=== PATIENT | male | born 1990 | race Caucasian/White ===

== ENCOUNTER 2019-08-24 05:00 | Emergency (ER) | payer MEDICAID, SELFPAY ==
[2019-08-24] VITALS (9 sets, daily range): BP systolic 106–130; BP diastolic 57–80; PULSE 85–113; RESP 16–24; TEMP 36.9; O2SAT 91–96; BMI 33.4
--- NOTE | 2019-08-24 04:55 | ED_ITS ---
Entered by Mary Clarke, acting as scribe for Documented by User: Sayra Galloway MD 08/24/19 05:41 HPI - Headache General: Chief Complaint: Seizure Stated Complaint: generalized weakness, siezure, headache Time Seen by Provider: 08/24/19 04:55 Source: EMS Mode of arrival: ambulatory History of Present Illness: HPI Narrative: 29 yo m came to the er by ems for headache, gen weakness and seizure. Onset was last night. Pt states that he gets a headache he knows that he is going to have a seizure. Pt states that once he receives pain meds that his seizures will stop. Pt is denying of any dizzyness at this time. MD elicited complaint: headache Pertinent past history: HIV and migraines Onset (ago): day(s) (last night) Onset description: gradually Severity: moderate Pain scale (0-10): 10 Quality & Timing: similar to previous headaches Exacerbating factors: none Relieving factors: nothing Context: occurred at rest Associated symptoms: Deny chest pain, fever(s), nausea, rash or vomiting Treatments prior to arrival: none Review of Systems General: Reports: other (negative unless marked) Const: Denies: fever or chills Eyes: Denies: change in vision ENMT: Denies: throat pain or mouth pain Card: Denies: chest pain Resp: Denies: shortness of breath GI: Denies: abdominal pain, nausea, vomiting or diarrhea Musc: Denies: back pain or joint pain Skin/Breast: Denies: rash Neuro: Reports: headache; Denies: behavioral changes Psych: Denies: depression Endo: Denies: excessive urination Rogelio/Lymph: Denies: easy bruising All/Imm: Denies: hives Physical Exam Const: COMMON NORMALS: no apparent distress and healthy appearing HENMT: COMMON NORMALS: normocephalic and external nose normal HEAD & SCALP: normocephalic NOSE: external nose normal and no nasal discharge (nasal dischage) Eye: COMMON NORMALS: PERRL PUPIL: Yes PERRL Neck/C-Spine: COMMON NORMALS: full ROM, no lymphadenopathy and no meningeal signs Chest: COMMONS NORMALS: inspection of chest normal Resp: COMMON NORMALS: normal respiratory effort and clear to auscultation bilaterally AUSCULTATION: clear to auscultation bilaterally Cardio: COMMON NORMALS: regular rate and regular rhythm RATE: regular rate RHYTHM: regular rhythm GI: COMMON NORMALS: soft to palpation PALPATION: Yes soft Extremity: COMMON NORMALS: normal to inspection, full ROM and normal capillary refill Neuro: MENINGEAL SIGNS: Yes no meningeal signs Psych: COMMON NORMALS: mental status grossly normal and cooperative Skin: COMMON NORMALS: no rashes or lesions noted GENERAL SKIN EXAM: no rashes or lesions noted Course Vital Signs: Vital signs: Vital Signs Temperature 98.4 F 08/24/19 04:53 Pulse Rate 106 H 08/24/19 09:28 Respiratory Rate 18 08/24/19 09:28 Blood Pressure 130/77 08/24/19 09:28 Pulse Oximetry 91 08/24/19 09:28 MDM - Headache MDM Narrative: Medical decision making narrative: Patient while here has had supposed seizure-like activity. During his seizures extremities move he does not quit breathing. I told him to stop and he did stop and had no postictal period. We will get a CT scan along with CBC and BMP. Patient does have chronic headaches and has no signs of meningitis here. Patient's care turned over to Dr. Cleaning at shift change. Lab Data: Labs: Lab Results 08/24/19 08/24/19 08/24/19 Range/Units 05:26 05:36 06:33 WBC 14.3 H (4.0-10.0) 10^3/ uL RBC 5.16 (4.1-5.3) 10^6/u L Hgb 16.0 (11.7-16.6) g/dL Hct 46.7 (42.0-52.0) % MCV 90.5 (80-94) fL MCH 31.0 (28.0-34.0) pg MCHC 34.3 (30.0-36.0) g/dL RDW 11.8 L (12.1-15.1) % Plt Count 209 (130-400) 10^3/c mm MPV 11.8 H (7.4-10.4) fL Neut % (Auto) 69.1 % Lymph % (Auto) 21.1 % Caroline % (Auto) 8.3 % Eos % (Auto) 0.7 % Baso % (Auto) 0.5 % Neut # (Auto) 9.9 H (1.8-7.7) 10^3/u L Lymph # (Auto) 3.0 (0.8-4.8) 10^3/u L Caroline # (Auto) 1.2 H (0.2-0.9) 10^3/u L Eos # (Auto) 0.1 (0.0-0.8) 10^3/u L Baso # (Auto) 0.1 (0.0-0.1) 10^3/u L Nucleated RBC % (a uto) 0 % Nucleated RBCs # 0.0 /100WBC Sodium 136 (136-145) mmol/L Potassium 3.9 (3.5-5.1) mmol/L Chloride 101 (98-107) mmol/L Carbon Dioxide 24 (22-29) mmol/L Anion Gap 14.9 (5-19) BUN 25 H (6-20) mg/dL Creatinine 1.2 (0.7-1.2) mg/dL GFR Calculation 70.6 L (90-130) mL/min Glucose 98 (74-109) mg/dL Calcium 9.7 (8.6-10.0) mg/Dl Urine Opiates Scre en Positve (Negative) ng/mL Ur Barbiturates Sc reen Negative (Negative) ng/mL Ur Phencyclidine S crn Negative (Negative) ng/mL Ur Amphetamines Sc reen Negative (Negative) ng/mL U Benzodiazepines Scrn Positive H (Negative) ng/mL Urine Cocaine Scre en Negative (Negative) ng/mL U Marijuana (THC) Screen Negative (Negative) ng/mL EKG Data^: EKG 1: Attestation: I personally reviewed and interpreted this EKG as follows: EKG interpretation date: 08/24/19 EKG interpretation time: 05:15 Interpretation: sinus tach hr [address] or t wave abnormalities Discharge Plan Discharge Patient Disposition: Left Against Medical Advice Clinical Impression: Generalized seizure Condition: Stable Prescriptions: No Action zolpidem [Ambien] 10 mg Tablet 10 mg PO BEDTIME PRN (Reason: Sleep) RF: 0 diazepam [Valium] 5 mg Tablet 5 mg PO QID PRN (Reason: Anxiety) RF: 0 cyclobenzaprine 10 mg Tablet 10 mg PO TID PRN (Reason: Spasms) RF: 0 tizanidine 4 mg Tablet 4 mg PO Q6H PRN (Reason: Spasms) RF: 0 gabapentin 300 mg Capsule 600 mg PO TID RF: 0 Seroquel 50 mg Tablet 50 mg PO TID RF: 0 Referrals: Cheryl Younger, EDILBERTO [Emergency Nurse] - (Follow-up with your provider as soon as possible for recheck and further evaluation and care.) Discharge Diet: Usual diet Discharge Activity: Resume usual activity Patient Instructions: Epilepsy (ED) Activity Restrictions/Additional Instructions: No driving, no tub baths, no swimming alone, no working at heights, no operating machinery, or anything else that would put you or anyone else at risk should you have another seizure. Discharge Date/Time: 08/24/19 09:00 Coding Level of Care Code ED Cigar Roller for Chg Fwd Exam Problem Focused Documented by User: Sheela Bueno 08/24/19 15:07 HPI - Headache General: Chief Complaint: Seizure Stated Complaint: generalized weakness, siezure, headache Time Seen by Provider: 08/24/19 04:55 Course Vital Signs: Vital signs: Vital Signs Temperature 98.4 F 08/24/19 04:53 Pulse Rate 106 H 08/24/19 09:28 Respiratory Rate 18 08/24/19 09:28 Blood Pressure 130/77 08/24/19 09:28 Pulse Oximetry 91 08/24/19 09:28 MDM - Headache MDM Narrative: Medical decision making narrative: The patient has had episodes here where he states he is seizing but he stops when I talk to him and he has purposeful movement and talks throughout the seizure. I have treated him with benzodiazepines and Reglan and he is feeling better. He declines any further evaluation and care would like to be discharged home. I do not believe what he is been demonstrating or seizures but I have proceeded with caution and his evaluation here is normal. He denies any other symptoms and would like to be discharged at this time. Lab Data: Labs: Lab Results 08/24/19 08/24/19 08/24/19 Range/Units 05:26 05:36 06:33 WBC 14.3 H (4.0-10.0) 10^3/ uL RBC 5.16 (4.1-5.3) 10^6/u L Hgb 16.0 (11.7-16.6) g/dL Hct 46.7 (42.0-52.0) % MCV 90.5 (80-94) fL MCH 31.0 (28.0-34.0) pg MCHC 34.3 (30.0-36.0) g/dL RDW 11.8 L (12.1-15.1) % Plt Count 209 (130-400) 10^3/c mm MPV 11.8 H (7.4-10.4) fL Neut % (Auto) 69.1 % Lymph % (Auto) 21.1 % Caroline % (Auto) 8.3 % Eos % (Auto) 0.7 % Baso % (Auto) 0.5 % Neut # (Auto) 9.9 H (1.8-7.7) 10^3/u L Lymph # (Auto) 3.0 (0.8-4.8) 10^3/u L Caroline # (Auto) 1.2 H (0.2-0.9) 10^3/u L Eos # (Auto) 0.1 (0.0-0.8) 10^3/u L Baso # (Auto) 0.1 (0.0-0.1) 10^3/u L Nucleated RBC % (a uto) 0 % Nucleated RBCs # 0.0 /100WBC Sodium 136 (136-145) mmol/L Potassium 3.9 (3.5-5.1) mmol/L Chloride 101 (98-107) mmol/L Carbon Dioxide 24 (22-29) mmol/L Anion Gap 14.9 (5-19) BUN 25 H (6-20) mg/dL Creatinine 1.2 (0.7-1.2) mg/dL GFR Calculation 70.6 L (90-130) mL/min Glucose 98 (74-109) mg/dL Calcium 9.7 (8.6-10.0) mg/Dl Urine Opiates Scre en Positve (Negative) ng/mL Ur Barbiturates Sc reen Negative (Negative) ng/mL Ur Phencyclidine S crn Negative (Negative) ng/mL Ur Amphetamines Sc reen Negative (Negative) ng/mL U Benzodiazepines Scrn Positive H (Negative) ng/mL Urine Cocaine Scre en Negative (Negative) ng/mL U Marijuana (THC) Screen Negative (Negative) ng/mL Discharge Plan Discharge Patient Disposition: Left Against Medical Advice Clinical Impression: Generalized seizure Condition: Stable Prescriptions: No Action zolpidem [Ambien] 10 mg Tablet 10 mg PO BEDTIME PRN (Reason: Sleep) RF: 0 diazepam [Valium] 5 mg Tablet 5 mg PO QID PRN (Reason: Anxiety) RF: 0 cyclobenzaprine 10 mg Tablet 10 mg PO TID PRN (Reason: Spasms) RF: 0 tizanidine 4 mg Tablet 4 mg PO Q6H PRN (Reason: Spasms) RF: 0 gabapentin 300 mg Capsule 600 mg PO TID RF: 0 Seroquel 50 mg Tablet 50 mg PO TID RF: 0 Referrals: Cheryl Younger RN [Emergency Nurse] - (Follow-up with your provider as soon as possible for recheck and further evaluation and care.) Discharge Diet: Usual diet Discharge Activity: Resume usual activity Patient Instructions: Epilepsy (ED) Activity Restrictions/Additional Instructions: No driving, no tub baths, no swimming alone, no working at heights, no operating machinery, or anything else that would put you or anyone else at risk should you have another seizure. Discharge Date/Time: 08/24/19 09:00 Coding Level of Care Code ED Cigar Roller for Chg Fwd Exam Problem Focused The documentation recorded by the Vince lundberg Stephanie Lyn, accurately reflects the service I personally performed and the decisions made by me, Sayra Galloway MD
--- NOTE | 2019-08-24 05:20 | CTR_ITS ---
[facility] Final Radiology Report Call: [phone] assistance Online chat: [email or web address] Name: LEYLA GUERIN Age: 29Years M Date: 08/24/2019 SSN: -- : [id number] Study: CT HEAD WO Requesting Physician: naseem Galloway Images: 210 Add?l Studies: Provided Clinical History: headache Procedure Accession CTDI Vol (mGy) DLP (mGy-cm) CT HEAD WO [id number] 847.58 PROCEDURE INFORMATION: Exam: CT Head Without Contrast Exam date and time: 08/24/2019 5:46 AM Age: 29 years old Clinical indication: Other: Seizure; Additional info: Headache TECHNIQUE: Imaging protocol: Computed tomography of the head without contrast. Total DLP: 847.58 mGy-cm Radiation optimization: All CT scans at this facility use at least one of these dose optimization techniques: automated exposure control; mA and/or kV adjustment per patient size (includes targeted exams where dose is matched to clinical indication); or iterative reconstruction. COMPARISON: No relevant prior studies available. FINDINGS: Brain: Normal. No hemorrhage. Unremarkable white matter. No mass effect. Ventricles: Normal. No ventriculomegaly. Bones/joints: Unremarkable. No acute fracture. Sinuses: There is mild sinus disease. Mastoid air cells: Visualized mastoid air cells are well aerated. Soft tissues: Unremarkable. IMPRESSION: No acute intracranial findings identified. Please refer to incidental findings in body of report. Thank you for allowing us to participate in the care of your patient. Dictated and Authenticated by: Gianluca Villegas MD 08/24/2019 8:23 AM Central Time ([place] & [place]) [facility]
[2019-08-24] MEDS: diphenhydrAMINE 50 mg/mL SDV 1mL IVP (05:24)
[2019-08-24] MEDS: metoclopramide 5 mg/mL SDV 2 mL 10 MG IV ×2 (05:24→08:36)
--- NOTE | 2019-08-24 05:27 | PC.NURSE ---
non destructive testing technician called nurse and ED physician into room for seizure activity . this activity lasted for approximately 2 minutes. pt apears to not be postictal. as soon as patients seizure activity patient stated my head hurts and i need something for pain. NURSE, NURSE look at this picture of my teacup pig. ed physician at bedside for activity. seizure precautions started on patient. suction at bedside. pulse ox and cafeteria monitor placed on patient. seizure pads placed on side rails. side rails up X2. patient informed to not to get up out of bed without assistance by ED staff.
[2019-08-24 05:33] LABS: Basophils # 0.1 10^3/uL (0.0-0.1); Basophils % 0.5 %; Eosinophils # 0.1 10^3/uL (0.0-0.8); Eosinophils % 0.7 %; Hematocrit 46.7 % (42.0-52.0); Lymphocytes % 21.1 %; Mean Corpuscular HGB Conc 34.3 g/dL (30.0-36.0); Mean Corpuscular Volume 90.5 fL (80-94); Mean Platelet Volume 11.8 fL (7.4-10.4); Monocytes # 1.2 10^3/uL (0.2-0.9); Monocytes % 8.3 %; Neutrophils # 9.9 10^3/uL (1.8-7.7); Neutrophils % 69.1 %; Nucleated Red Blood Cells % 0 %; Platelet Count 209 10^3/cmm (130-400); Red Blood Count 5.16 10^6/uL (4.1-5.3); Red Cell Distribution Width 11.8 % (12.1-15.1); White Blood Count 14.3 10^3/uL (4.0-10.0)
[2019-08-24] MEDS: morphine 4 mg/mL SDV 1 mL IVP (05:45)
--- NOTE | 2019-08-24 06:17 | PC.NURSE ---
in CT patient had more seizure activity this lasted for approximately 1 minute . patient had hands above head and grasping tightly. patient woke up asking where is my ? am I being admitted? am I going to ? ed physician notified of this incident.
[2019-08-24] MEDS: sodium chloride 0.9% 1,000 ML 999 ML IV (06:32)
[2019-08-24 06:43] LABS: Amphetamines Screen Urine Negative (Negative); Barbiturates Screen Urine Negative (Negative); Benzodiazepines Screen Urine Positive (Negative); Cocaine Screen Urine Negative (Negative); PCP Screen Urine Negative (Negative); THC Screen Urine Negative (Negative)
[2019-08-24 06:51] LABS: Anion Gap 14.9 (5-19); Blood Urea Nitrogen 25 mg/dL (6-20); Calcium 9.7 mg/Dl (8.6-10.0); Carbon Dioxide 24 mmol/L (22-29); Chloride 101 mmol/L (98-107); Glomerular Filtration Rate 70.6 mL/min (90-130); Glucose 98 mg/dL (74-109); Potassium 3.9 mmol/L (3.5-5.1); Sodium 136 mmol/L (136-145)
[2019-08-24] MEDS: HYDROmorphone 1 mg/mL INJ 1 mL 0.5 MG IVP (06:53)
--- NOTE | 2019-08-24 07:00 | PC.NURSE ---
Report received from EDILBERTO Luna. Care transferred to EDILBERTO Barnhart.
--- NOTE | 2019-08-24 07:05 | PC.NURSE ---
Patient continues to have pseudo-seizures, once coming out of the seizure he insists that he wants to be admitted and that he feels like he's going to and his grandmother will call him home As well wanting to know what the results. Notified both the nurse and doctor.
[2019-08-24] MEDS: LORazepam 2 mg/mL INJ 1 mL IVP (08:09)
[2019-08-24] MEDS: LORazepam 2 mg/mL INJ 1 mL 1 MG IVP (08:20)
== END 2019-08-24 09:00 | disposition left against medical advice (07) ==
PROVIDERS: Emergency Medicine; Emergency Provider Emergency Medicine
DX: G40.89 Other seizures (principal); B20 Human immunodeficiency virus [HIV] disease; Z53.21 Procedure and treatment not carried out due to patient leaving prior to being seen by health care provider
CPT/HCPCS: 36415; 70450; 80048; 80307; 85025; 96360; 96365; 96374; 99283; J0131; J1170; J1200; J2060; J2270; J2765; J7030

== ENCOUNTER 2019-08-28 02:41 | Emergency (ER) | payer MEDICAID, SELFPAY ==
[2019-08-28 02:45] VITALS: BP 139/96; PULSE 107; RESP 16; TEMP 36.7; O2SAT 97; BMI 34.4
--- NOTE | 2019-08-28 02:45 | ED_ITS ---
Entered by Mary Clarke, acting as scribe for Sayra Galloway MD HPI - Psych General: Chief Complaint: Psychiatric Symptoms Stated Complaint: MHE Time Seen by Provider: 08/28/19 02:52 Source: patient Mode of arrival: ambulatory Limitations: no limitations History of Present Illness: HPI Narrative: 29 yo m came to the er with family for psychiatric symptoms. Onset was today. Pt states that he has a headache, pt also states that Nila from [facility] told pt that he needs a MHE. MD complaint: suicidal ideation Onset (ago): hour(s) Duration: constant History of same: Yes Relieving factors: none Exacerbating factors: none Associated psychiatric symptoms: depression Associated symptoms: Deny depression Treatments prior to arrival: none Review of Systems Const: Denies: fever or chills Eyes: Denies: change in vision ENMT: Denies: throat pain or mouth pain Card: Denies: chest pain Resp: Denies: shortness of breath GI: Denies: abdominal pain, nausea, vomiting or diarrhea Musc: Denies: back pain or joint pain Skin/Breast: Denies: rash Neuro: Denies: headache or behavioral changes Psych: Denies: depression Endo: Denies: excessive urination Rogelio/Lymph: Denies: easy bruising All/Imm: Denies: hives PFSH ED PFSH: Statuses (acute, chronic, etc) shown below reflect problem list status as previously entered and may not be historically accurate Social History Smoking and tobacco status: current every day smoker Physical Exam Const: COMMON NORMALS: no apparent distress, oriented x3 and healthy appearing HENMT: COMMON NORMALS: normocephalic and external nose normal HEAD & SCALP: normocephalic NOSE: external nose normal Eye: COMMON NORMALS: PERRL PUPIL: Yes PERRL Neck/C-Spine: COMMON NORMALS: full ROM and no lymphadenopathy Chest: COMMONS NORMALS: inspection of chest normal Resp: COMMON NORMALS: normal respiratory effort, no use of accessory muscles and clear to auscultation bilaterally AUSCULTATION: clear to auscultation bilaterally Cardio: COMMON NORMALS: regular rate and regular rhythm RATE: regular rate RHYTHM: regular rhythm GI: COMMON NORMALS: normal to inspection, nondistended, normoactive bowel sounds, soft to palpation, non-tender and no masses PALPATION: Yes soft Back/Pelvis: THORACIC SPINE/UPPER BACK: Yes normal to inspection Extremity: COMMON NORMALS: normal to inspection, full ROM and normal capillary refill Neuro: COMMON NORMALS: oriented x3 Psych: COMMON NORMALS: mental status grossly normal and cooperative Skin: COMMON NORMALS: no rashes or lesions noted GENERAL SKIN EXAM: no rashes or lesions noted MDM - Psych MDM Narrative: Medical decision making narrative: Patient presents here with headache with a tension headache. Patient's also depressed but has no suicidal or homicidal ideations. Patient adamantly denies any suicidality or homicidality. Patient is well-appearing here and is stable for discharge. Discharge Plan Discharge Patient Disposition: Home, Self-Care Clinical Impression: Headache Qualifiers: Headache type: tension-type Headache chronicity pattern: unspecified pattern Intractability: not intractable Qualified Code(s): G44.209 - Tension-type headache, unspecified, not intractable Condition: Stable Discharge Orders: Discharge Order (Routine); Ordered 08/28/19 Ordered By: Sayra Galloway Discharge Diet: Advance as tolerated Discharge Activity: Resume usual activity Patient Instructions: Acute Headache (ED) Discharge Date/Time: 08/28/19 03:09 Coding Level of Care Code ED Lens Matcher for Chg Fwd Exam Problem Focused The documentation recorded by the Vince lundberg Stephanie Lyn, accurately reflects the service I personally performed and the decisions made by , Sayra Galloway MD
[2019-08-28] MEDS: promethazine 25 mg/mL SDV 1 mL IM (03:09)
== END 2019-08-28 03:09 | disposition home or self-care (01) ==
LOC: ER 02:58
PROVIDERS: Emergency Provider Emergency Medicine
DX: G44.209 Tension-type headache, unspecified, not intractable (principal); F17.210 Nicotine dependence, cigarettes, uncomplicated
CPT/HCPCS: 99284; J2550

== ENCOUNTER 2019-08-29 11:55 | Emergency (ER) | payer MEDICAID, SELFPAY ==
[2019-08-29] VITALS (9 sets, daily range): BP systolic 102–175; BP diastolic 76–104; PULSE 86–139; RESP 14–32; TEMP 36.9–37; O2SAT 98–99; BMI 28.7
[2019-08-29] MEDS: LORazepam 2 mg/mL INJ 1 mL (12:10)
[2019-08-29] MEDS: succinylcholine 20 mg/mL SDV 10mL 200 MG (12:13)
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
[2019-08-29] MEDS: sodium chloride 0.9% 1,000 ML 999 ML IV (12:20)
[2019-08-29] MEDS: propofol 1,000 MG/100 ML INJ 10 MG (12:20)
[2019-08-29] MEDS: sodium chloride 0.9% 1,000 ML 200 ML IV ×2 (12:36→17:52)
--- NOTE | 2019-08-29 13:01 | XR_ITS ---
WS: [id number] PORTABLE CHEST HISTORY: post intubation and NG tube placement COMPARISON: 02/04/2019 Endotracheal tube terminates over C6 and needs to be advanced 5 to 6 cm. Nasogastric tube terminates just within the stomach. The proximal port is in the distal esophagus. Na sogastric tube also needs to be advanced. RIGHT upper lobar collapse. Shift of the midline structures to the RIGHT, due to volume loss. Increas ing opacification also over the central LEFT lung. Volume loss bilaterally. Stranding in the LEFT low er lobe posterior to the heart. Cardiac size: Normal. Mediastinum/Aorta: Prominence of the mediastinum due to atelectasis centrally. No osseous abnormality seen. Notified Kathryn Horn MD [facility] [place] at 08/29/2019 2:17 PM. XR/XR chest 1V portable [id number] IMPRESSION: 1. Endotracheal tube terminates at C6 and needs to be advanced at least 6 cm f or more optimal positioning. 2. Nasogastric tube terminates in the proximal stomach and needs to be advance d 10 cm for more optimal positioning. 3. RIGHT upper lobe collapse with volume loss and additional changes in the LE FT upper lobe suspicious for atelectasis. Aspiration pneumonia and mucous plugg ing should also be considered as possible etiologies for the changes. Advancing the endotracheal tube to the correct position may help.
--- NOTE | 2019-08-29 13:01 | CT_ITS ---
WS: [id number] CT HEAD NONCONTRAST HISTORY: status epilecticus TECHNIQUE: Contiguous axial imaging performed through the brain in 2.5 mm imaging. Bone and soft tiss ue windows. Sagittal and coronal reformats reviewed. All CT scans at [facility] use at ast one of these dose optimization techniques: automated exposure control; mA and/or kV adjustment pe r patient size (includes targeted exams where dose is matched to clinical indication); or iterative r econstruction. DLP: 558.74 mGy.cm COMPARISON: 08/24/2019 No acute intracranial hemorrhage, midline shift or mass effect. No atrophy or prior infarcts or herniation. Ventricles: Normal size with no hydrocephalus. No inferior displacement of cerebellar tonsils. Paranasal sinuses: Mild mucoperiosteal thickening in the ethmoid air cells. No air-fluid levels. Mastoid air cells: Well pneumatized. Calvarium and scalp: Skull is intact with no soft tissue edema or swelling. CT/CT head wo con* [id number] IMPRESSION: No acute intracranial hemorrhage or edema. Stable since 08/24/2019.
[2019-08-29 13:33] LABS: Basophils # 0.1 10^3/uL (0.0-0.1); Basophils % 0.7 %; Eosinophils # 0.2 10^3/uL (0.0-0.8); Eosinophils % 1.8 %; Hematocrit 43.2 % (42.0-52.0); Hemoglobin 14.4 g/dL (11.7-16.6); Lymphocytes # 1.9 10^3/uL (0.8-4.8); Lymphocytes % 23.6 %; Mean Corpuscular HGB Conc 33.3 g/dL (30.0-36.0); Mean Corpuscular Hemoglobin 30.6 pg (28.0-34.0); Mean Corpuscular Volume 91.7 fL (80-94); Monocytes # 0.7 10^3/uL (0.2-0.9); Monocytes % 8.5 %; Neutrophils # 5.3 10^3/uL (1.8-7.7); Neutrophils % 64.8 %; Nucleated Red Blood Cells % 0 %; Platelet Count 215 10^3/cmm (130-400); Red Blood Count 4.71 10^6/uL (4.1-5.3); Red Cell Distribution Width 12.1 % (12.1-15.1); White Blood Count 8.2 10^3/uL (4.0-10.0)
[2019-08-29 13:48] LABS: Alanine Aminotransferase 46 U/L (0-41); Albumin Level 4.2 g/dL (3.5-5.2); Alkaline Phosphatase 127 IU/L (40-130); Anion Gap 15.6 (5-19); Aspartate Amino Transferase 39 U/L (0-40); Blood Urea Nitrogen 15 mg/dL (6-20); Calcium 9.6 mg/Dl (8.6-10.0); Carbon Dioxide 23 mmol/L (22-29); Chloride 105 mmol/L (98-107); Globulin 2.5 g/dL (1.3-4.6); Glomerular Filtration Rate 78.1 mL/min (90-130); Glucose 121 mg/dL (74-109); Potassium 4.6 mmol/L (3.5-5.1); Sodium 139 mmol/L (136-145); Total Bilirubin 0.4 mg/dL (0.15-1.2); Total Protein 6.7 g/dL (6.6-8.7)
[2019-08-29] MEDS: propofol 1,000 MG/100 ML INJ 60 MG IV ×3 (14:41→20:05)
[2019-08-29] MEDS: vecuronium 10 mg SDV IV ×2 (14:46→16:28)
[2019-08-29] MEDS: fentaNYL 50 mcg/mL INJ 2mL 200 MCG IVP (14:48)
[2019-08-29] MEDS: sodium chloride 0.9% 1,000 ML 100 ML IV (15:55)
[2019-08-29] MEDS: fentaNYL 50 mcg/mL INJ 2mL 100 MCG IVP (16:04)
--- NOTE | 2019-08-29 17:57 | PC.NURSE ---
10mg Vec given IV over 3 minutes, per Dr. Horn's verbal order @ 6600
[2019-08-29 18:12] LABS: Add Urine Microscopic? NO
[2019-08-29 18:32] LABS: Bilirubin Urine Neg (NEGATIVE); Blood Urine Neg (Negative); Glucose Urine UA Norm (Normal); Ketones Urine Negative (Negative); Leukocyte Esterase Urine Negative (Negative); Nitrate Urine Negative (Negative); Protein Urine Neg (Negative); Specific Gravity, Urine 1.005 (1.005-1.030); Urine Appearance Clear (CLEAR); Urine Color Straw (Yellow); Urobilinogen Urine Norm (Negative); pH Urine 5 (5-7)
[2019-08-29 18:44] LABS: Amphetamines Screen Urine Negative (Negative); Barbiturates Screen Urine Negative (Negative); Benzodiazepines Screen Urine Positive (Negative); Cocaine Screen Urine Negative (Negative); Opiate Screen Urine Negative (Negative); PCP Screen Urine Negative (Negative); THC Screen Urine Negative (Negative)
--- NOTE | 2019-08-29 19:30 | PC.NURSE ---
This nurse to sit 1:1 with pt due to high risk of extubation. Current VS 107/76, hr 85, O2 98%. Levophed @ 4 mcg/min, propofol @ 50 mcg/kg/min. Ventilator setting at 35%, 500 TV 8 PEEP, R14. ETT size 8, 27 @ lip.
[2019-08-29] MEDS: LORazepam 2 mg/mL INJ 1 mL IVP (20:07)
== END 2019-08-29 20:45 | disposition short-term general hospital (02) ==
PROVIDERS: Emergency Provider Family Medicine
DX: G40.901 Epilepsy, unspecified, not intractable, with status epilepticus (principal); F17.210 Nicotine dependence, cigarettes, uncomplicated
CPT/HCPCS: 31500; 70450; 71045; 80053; 80307; 81003; 85025; 86140; 87070; 87205; 94002; 94799; 96360; 96361; 96365; 96366; 96367; 96368; 96374; 96375; 96376; 99283; 99291; A4570; J0330; J1953; J2060; J2704; J3010; J3490; J7030

== ENCOUNTER 2019-09-04 14:13 | Emergency (ER) | payer MEDICAID, SELFPAY ==
--- NOTE | 2019-09-04 14:18 | ED_ITS ---
Entered by Krystal Eisenberg, acting as scribe for Sheela Bueno HPI - Seizure General: Chief Complaint: Seizure Stated Complaint: PSEUDO SEIZURE Time Seen by Provider: 09/04/19 14:17 Source: patient Limitations: no limitations History of Present Illness: HPI Narrative: 29 yo Male presents to ED with complaint of seizure. Pt states that he takes valium for seizures but thinks he needs to be taking something else. Pt states that his PCP is Boom Griffin. Pt states that he has a bad headache and a rapid heart rate. Pt states that he did not injury anything during his seizures. Per nursing staff, EMS picked patient up at 0200 today and took the patient to the hospital in [place]. Pt was discharged from [place] at 1100 and went to Probation office where he had a seizure and was brought into this ED. MD complaint: seizure Description of Episode: tonic-clonic movement and post-event confusion Trauma: No Seizure History: Yes Place: Home Possible Precipitating Event: none Associated symptoms: Reports confusion; Deny chest pain, chills, diaphoresis, fever(s), malaise or syncope Review of Systems General: Reports: other (negative unless marked) Const: Denies: fever, chills, body aches, fatigue, malaise or diaphoresis Eyes: Denies: change in vision or blurry vision ENMT: Denies: throat pain, painful swallowing, hoarseness, ear pain, ear discharge, Change in hearing or nasal discharge Card: Denies: chest pain, palpitations, irregular heart rhythm, syncope, pre- syncope, shortness of breath on exertion or shortness of breath when lying down Resp: Denies: shortness of breath, productive cough, non-productive cough, wheezing, coughing up blood or chest congestion GI: Denies: abdominal pain, nausea, vomiting, vomiting blood, coffee grounds in vomit, diarrhea, constipation, cramping, blood in stool or black tarry stool : Denies: flank pain, difficulty urinating, painful urination, urinary frequency, urinary urgency, decreased urine ouput, urinary incontinence or blood in urine Musc: Denies: neck pain, back pain, extremity pain, extremity swelling, joint pain, joint swelling, joint warmth or joint stiffness Skin/Breast: Denies: rash, skin tenderness or yellow skin Neuro: Reports: headache, confusion and seizure-like activity Endo: Denies: excessive thirst, tired all the time, cold intolerance, excessive sweating, flushing or hot flashes Rogelio/Lymph: Denies: easy bruising, easy bleeding, petechiae or enlarged lymph nodes All/Imm: Denies: hives, throat swelling, tongue swelling, facial swelling or acute wheezing PFSH ED PFSH: Statuses (acute, chronic, etc) shown below reflect problem list status as previously entered and may not be historically accurate Social History Smoking and tobacco status: current every day smoker cigarettes Packs smoked per day: 0.5 Physical Exam Const: COMMON NORMALS: no apparent distress, oriented x3, no limitations, healthy appearing and well nourished EXAM LIMITATIONS: no altered mental status GENERAL APPEARANCE: cooperative, well kempt and well developed ORIENTATION/CONSCIOUSNESS: Yes awake HENMT: COMMON NORMALS: normocephalic, head/scalp atraumatic, hearing grossly normal bilaterally, external ears normal, EAC's normal, external nose normal and moist oral mucous membranes HEAD & SCALP: normal to inspection, normocephalic and atraumatic FACE & SINUS: normal facial exam and face symmetric NOSE: external nose normal and nares normal EXTERNAL EAR: Yes external ears normal EXTERNAL AUDITORY CANAL: EAC's normal MOUTH: oral and palatal mucosa normal and tongue normal Eye: COMMON NORMALS: PERRL, EOMs intact bilaterally, conjunctivae normal and no scleral icterus GENERAL EYE: normal appearance of both eyes and normal light reflex CONJUNCTIVA: Yes conjunctivae normal SCLERA: sclerae normal CORNEA: Yes corneas normal PUPIL: Yes PERRL DIRECT OPHTHALMOSCOPY: Yes normal light reflex Neck/C-Spine: COMMON NORMALS: full ROM, no lymphadenopathy, supple, no meningeal signs and no JVD GENERAL: Yes normal visual inspection and Yes trachea midline CERVICAL SPINE: Yes cervical ROM normal Chest: COMMONS NORMALS: inspection of chest normal and palpation of chest normal Resp: COMMON NORMALS: normal respiratory effort, no retractions, no use of accessory muscles and clear to auscultation bilaterally EFFORT & INSPECTION: Yes able to speak in complete sentences AUSCULTATION: clear to auscultation bilaterally Cardio: COMMON NORMALS: no JVD, regular rate, regular rhythm, S1 normal heart sound, S2 normal heart sound, no gallops, no clicks, no murmurs and no rub JUGULAR VENOUS DISTENTION: no JVD RATE: regular rate RHYTHM: regular rhythm HEART SOUNDS: S1 normal and S2 normal GI: COMMON NORMALS: soft to palpation, non-tender, no hepatosplenomegaly and no masses INSPECTION: Yes normal to inspection PALPATION: Yes soft and Yes no hepatosplenomegaly : COMMON NORMALS: Yes no CVA tenderness BLADDER/KIDNEY EXAM: Yes no CVA tenderness Back/Pelvis: COMMON NORMALS: no CVA tenderness, thoracic and lumbar spine normal to inspection, no thoracic nor lumbar tenderness and thoraco-lumbar ROM normal Extremity: COMMON NORMALS: normal to inspection, full ROM, normal capillary refill, no joint enlargement, no clubbing, cyanosis or edema and no calf tenderness Neuro: COMMON NORMALS: oriented x3, CN's II-XII intact bilaterally, moves all extremities, no focal motor deficits and no sensory deficits noted MENINGEAL SIGNS: Yes no meningeal signs Psych: COMMON NORMALS: mental status grossly normal, thought process normal, cooperative, affect normal, speech normal and activity/motor behavior normal APPEARANCE: Yes well kempt SPEECH: Yes normal speech THOUGHT PROCESS: normal thought process Skin: COMMON NORMALS: no rashes or lesions noted, skin turgor normal, no jaundice, no petechiae and no mottling GENERAL SKIN EXAM: no rashes or lesions noted and turgor normal Course Vital Signs: Vital signs: Vital Signs Temperature 98.4 F 09/04/19 14:20 Pulse Rate 87 09/04/19 17:43 Respiratory Rate 16 09/04/19 17:43 Blood Pressure 148/68 09/04/19 17:43 Pulse Oximetry 96 09/04/19 17:43 MDM - Seizure MDM Narrative: Medical decision making narrative: Per review of the patient's outpatient work-up it is unclear whether he truly has any seizures at all. He is documented as having psychogenic seizures. The patient has no postictal period after his supposed seizures here. This time we will go and discharge him home as he is ready. I see no sign of acute life-threatening problem at this time. Patient is encouraged to return though for further work-up should his symptoms return. Lab Data: Attestation: I reviewed the patient's lab results. Labs: Lab Results 09/04/19 09/04/19 Range/Units 15:12 15:12 WBC 10.8 H (4.0-10.0) 10^3/ uL RBC 5.00 (4.1-5.3) 10^6/u L Hgb 15.5 (11.7-16.6) g/dL Hct 46.1 (42.0-52.0) % MCV 92.2 (80-94) fL MCH 31.0 (28.0-34.0) pg MCHC 33.6 (30.0-36.0) g/dL RDW 12.2 (12.1-15.1) % Plt Count 233 (130-400) 10^3/c mm MPV 10.5 H (7.4-10.4) fL Neut % (Auto) 71.7 % Lymph % (Auto) 18.7 % [place] % (Auto) 7.5 % Eos % (Auto) 1.2 % Baso % (Auto) 0.6 % Neut # (Auto) 7.7 (1.8-7.7) 10^3/u L Lymph # (Auto) 2.0 (0.8-4.8) 10^3/u L [place] # (Auto) 0.8 (0.2-0.9) 10^3/u L Eos # (Auto) 0.1 (0.0-0.8) 10^3/u L Baso # (Auto) 0.1 (0.0-0.1) 10^3/u L Nucleated RBC % (a uto) 0 % Nucleated RBCs # 0.0 /100WBC Sodium 137 (136-145) mmol/L Potassium 4.6 (3.5-5.1) mmol/L Chloride 103 (98-107) mmol/L Carbon Dioxide 25 (22-29) mmol/L Anion Gap 13.6 (5-19) BUN 18 (6-20) mg/dL Creatinine 1.2 (0.7-1.2) mg/dL GFR Calculation 70.6 L (90-130) mL/min Glucose 91 (74-109) mg/dL Calcium 9.7 (8.6-10.0) mg/Dl Magnesium 2.2 (1.7-2.3) mg/dL Total Bilirubin 0.2 (0.15-1.2) mg/dL AST 33 (0-40) U/L ALT 56 H (0-41) U/L Alkaline Phosphata se 131 H (40-130) IU/L Total Protein 6.9 (6.6-8.7) g/dL Albumin 4.2 (3.5-5.2) g/dL Globulin 2.7 (1.3-4.6) g/dL Ethyl Alcohol < 10 (0-10) mg/dL Imaging Data^: CT Head: Radiologist's impression: [address] [address] [address] Scan Report Signed Patient: Cathy Hyatt #: [id number] : 1990Acct#:[id number] Age/Sex: 29 / MADM Date: 09/04/19 Loc: ERRoom/Bed: Attending Dr: Ordering Provider/Ordering MD: Sheela Bueno DO Date of Service: 09/04/19 Procedure(s): CT head wo con* 12869 Accession Number(s): [id number] Report Number: [id number] WS: [id number] CT HEAD NONCONTRAST HISTORY: MEZA/AMS TECHNIQUE: Contiguous axial imaging performed through the brain in 2.5 mm imaging. Bone and soft tissue windows. Sagittal and coronal reformats reviewed. All CT scans at [facility] use at least one of these dose optimization techniques: automated exposure control; mA and/or kV adjustment per patient size (includes targeted exams where dose is matched to clinical indication); or iterative reconstruction. DLP: 804.04 mGy.cm COMPARISON: 08/29/2019 and 08/24/2019 No acute intracranial hemorrhage, midline shift or mass effect. No atrophy or prior infarcts or herniation. Ventricles: Normal size with no hydrocephalus. Negative posterior fossa. Paranasal sinuses: As visualized are clear. Mastoid air cells: Well pneumatized. Calvarium and scalp: Skull is intact with no soft tissue edema or swelling. CT/CT head wo con* [id number] IMPRESSION: 1. No acute intracranial hemorrhage or edema. 2. Stable noncontrast head CT. Dictated By:Ashanti Hui DO Signed By:Ashanti Hui DOSigned Date/Time:09/04/19 1508 DD/ 1505 CXR: Radiologist's impression: [address] [place] [address] XRay Report Signed Patient: Cathy Hyatt #: [id number] : 1990Acct#:[id number] Age/Sex: 29 / MADM Date: 09/04/19 Loc: ERRoom/Bed: Attending Dr: Ordering Provider/Ordering MD: Sheela Bueno DO Date of Service: 09/04/19 Procedure(s): XR chest 1V portable [id number] Accession Number(s): [id number] Report Number: [id number] PROCEDURE INFORMATION: Exam: XR Chest, 1 View Exam date and time: 09/04/2019 4:14 PM Age: 29 years old Clinical indication: Cough; Patient HX: Seizures TECHNIQUE: Imaging protocol: XR of the chest Views: 1 view. COMPARISON: CR XR chest 1V portable [id number] 08/29/2019 2:05 PM FINDINGS: Lungs: Unremarkable. No consolidation. Marked improvement in the airspace opacity/consolidation on the prior exam. Pleural space: Unremarkable. No pleural effusion. No pneumothorax. Heart/Mediastinum: Unremarkable. No cardiomegaly. Bones/joints: Unremarkable. XR/XR chest 1V portable [id number] IMPRESSION: No acute findings. Previous opacities have resolved. Dictated By:Hilda Richardson Signed By:Rubén Richardson Date/Time:09/04/191635 DD/ 163 Discharge Plan Discharge Patient Disposition: Home, Self-Care Clinical Impression: Generalized seizure Condition: Stable Prescriptions: New Fioricet 50-300-40 mg capsule 1 cap PO Q8H PRN (Reason: pain) Qty: 10 RF: 0 No Action cyclobenzaprine 10 mg tablet 10 mg PO TID PRN (Reason: Spasms) RF: 0 DILT-XR 240 mg capsule,ext.rel 24h degradable 240 mg PO DAILY RF: 0 tizanidine 4 mg tablet 4 mg PO Q6H PRN (Reason: Spasms) RF: 0 hydroxyzine pamoate 50 mg capsule 50 mg PO TID PRN (Reason: Anxiety) RF: 0 olanzapine 10 mg tablet 10 mg PO DAILY RF: 0 sulfamethoxazole-trimethoprim 800-160 mg tablet 1 tab PO BID RF: 0 tramadol 50 mg tablet 50 - 100 mg PO Q6H PRN (Reason: Pain) RF: 0 clonazepam 2 mg tablet 2 mg PO DAILY RF: 0 gabapentin 300 mg capsule 600 mg PO TID RF: 0 zolpidem 10 mg tablet 10 mg PO BEDTIME RF: 0 naproxen 500 mg tablet 500 mg PO TID PRN (Reason: Pain) RF: 0 diazepam 5 mg tablet 5 mg PO QID PRN (Reason: Anxiety) RF: 0 pregabalin 100 mg capsule 100 mg PO TID RF: 0 quetiapine 50 mg tablet 50 mg PO TID RF: 0 Discharge Orders: Discharge Order (Routine); Ordered 09/04/19 Ordered By: Sheela Bueno Referrals: Sanjana Diallo MD [Physician] - 4-7 days Discharge Diet: Advance as tolerated Discharge Activity: Resume usual activity Patient Instructions: Recurrent Seizures Adult (ED) Activity Restrictions/Additional Instructions: No driving, no working at heights, no tub baths, no swimming alone or anything else that would put you at risk should you have another seizure. Discharge Date/Time: 09/04/19 17:43 Coding Level of Care Code ED Director Of Physical Security for Chg Fwd Exam Problem Focused The documentation recorded by the Faina lundberg Carmen, accurately reflects the service I personally performed and the decisions made by Myles mckeon Eli N Sep 04, 2019 14:13
[2019-09-04 14:20] VITALS: BP 141/101; PULSE 103; RESP 18; TEMP 36.9; O2SAT 95; BMI 34.9
--- NOTE | 2019-09-04 14:21 | XRR_ITS ---
PROCEDURE INFORMATION: Exam: XR Chest, 1 View Exam date and time: 09/04/2019 4:14 PM Age: 29 years old Clinical indication: Cough; Patient HX: Seizures TECHNIQUE: Imaging protocol: XR of the chest Views: 1 view. COMPARISON: CR XR chest 1V portable [id number] 08/29/2019 2:05 PM FINDINGS: Lungs: Unremarkable. No consolidation. Marked improvement in the airspace opacity/consolidation on the prior exam. Pleural space: Unremarkable. No pleural effusion. No pneumothorax. Heart/Mediastinum: Unremarkable. No cardiomegaly. Bones/joints: Unremarkable. XR/XR chest 1V portable [id number] IMPRESSION: No acute findings. Previous opacities have resolved.
--- NOTE | 2019-09-04 14:21 | CT_ITS ---
WS: [id number] CT HEAD NONCONTRAST HISTORY: MEZA/AMS TECHNIQUE: Contiguous axial imaging performed through the brain in 2.5 mm imaging. Bone and soft tiss ue windows. Sagittal and coronal reformats reviewed. All CT scans at [facility] use at ast one of these dose optimization techniques: automated exposure control; mA and/or kV adjustment pe r patient size (includes targeted exams where dose is matched to clinical indication); or iterative r econstruction. DLP: 804.04 mGy.cm COMPARISON: 08/29/2019 and 08/24/2019 No acute intracranial hemorrhage, midline shift or mass effect. No atrophy or prior infarcts or herniation. Ventricles: Normal size with no hydrocephalus. Negative posterior fossa. Paranasal sinuses: As visualized are clear. Mastoid air cells: Well pneumatized. Calvarium and scalp: Skull is intact with no soft tissue edema or swelling. CT/CT head wo con* [id number] IMPRESSION: 1. No acute intracranial hemorrhage or edema. 2. Stable noncontrast head CT.
[2019-09-04] MEDS: LORazepam 2 mg/mL INJ 1 mL 1 MG IVP ×2 (15:07→15:12)
[2019-09-04 15:17] LABS: Basophils # 0.1 10^3/uL (0.0-0.1); Basophils % 0.6 %; Eosinophils # 0.1 10^3/uL (0.0-0.8); Eosinophils % 1.2 %; Hematocrit 46.1 % (42.0-52.0); Hemoglobin 15.5 g/dL (11.7-16.6); Lymphocytes % 18.7 %; Mean Corpuscular HGB Conc 33.6 g/dL (30.0-36.0); Mean Corpuscular Volume 92.2 fL (80-94); Mean Platelet Volume 10.5 fL (7.4-10.4); Monocytes # 0.8 10^3/uL (0.2-0.9); Monocytes % 7.5 %; Neutrophils # 7.7 10^3/uL (1.8-7.7); Neutrophils % 71.7 %; Nucleated Red Blood Cells % 0 %; Platelet Count 233 10^3/cmm (130-400); Red Cell Distribution Width 12.2 % (12.1-15.1); White Blood Count 10.8 10^3/uL (4.0-10.0)
[2019-09-04] MEDS: metoclopramide 5 mg/mL SDV 2 mL 10 MG IV (15:17)
[2019-09-04] MEDS: sodium chloride 0.9% 1,000 ML 999 ML IV (15:29)
[2019-09-04 15:30] LABS: Alanine Aminotransferase 56 U/L (0-41); Albumin Level 4.2 g/dL (3.5-5.2); Alkaline Phosphatase 131 IU/L (40-130); Anion Gap 13.6 (5-19); Aspartate Amino Transferase 33 U/L (0-40); Blood Urea Nitrogen 18 mg/dL (6-20); Calcium 9.7 mg/Dl (8.6-10.0); Carbon Dioxide 25 mmol/L (22-29); Chloride 103 mmol/L (98-107); Globulin 2.7 g/dL (1.3-4.6); Glomerular Filtration Rate 70.6 mL/min (90-130); Glucose 91 mg/dL (74-109); Magnesium 2.2 mg/dL (1.7-2.3); Potassium 4.6 mmol/L (3.5-5.1); Sodium 137 mmol/L (136-145); Total Bilirubin 0.2 mg/dL (0.15-1.2); Total Protein 6.9 g/dL (6.6-8.7)
[2019-09-04 15:32] LABS: Alcohol Level < 10 mg/dL (0-10)
[2019-09-04 16:04] VITALS: RESP 18; O2SAT 97
[2019-09-04] MEDS: HYDROmorphone 1 mg/mL INJ 1 mL IVP (16:04)
[2019-09-04] MEDS: ketorolac 30 mg/mL INJ 15 MG IVP (17:11)
[2019-09-04 17:43] VITALS: BP 148/68; PULSE 87; RESP 16; O2SAT 96
== END 2019-09-04 17:43 | disposition home or self-care (01) ==
PROVIDERS: Emergency Provider Emergency Medicine
DX: G40.89 Other seizures (principal); F17.210 Nicotine dependence, cigarettes, uncomplicated
CPT/HCPCS: 36415; 70450; 71045; 80053; 80307; 83735; 85025; 96360; 96365; 96374; 99282; J0131; J1170; J1885; J2060; J2765; J7030

== ENCOUNTER 2019-09-07 09:10 | Day surgery (SDC) | payer MEDICAID, SELFPAY ==
[2019-09-06 08:38] VITALS: BMI 34.9
[2019-09-07 09:56] VITALS: BP 148/88; PULSE 80; RESP 18; TEMP 36.6; O2SAT 95
[2019-09-07] MEDS: sodium chloride 0.9% 1,000 ML 30 ML (10:00)
--- NOTE | 2019-09-07 10:05 | ANES.PREANES ---
Pre-Anesthetic Assessment Pre-Anesthetic Assessment: Height/Weight: Height 1.78 m Weight 110.677 kg Temp Pulse Resp BP Pulse Ox 97.8 F 80 18 148/88 95 09/07/19 09:56 09/07/19 09:56 09/07/19 09:56 09/07/19 09:56 09/07/19 09:56 Proposed Procedure: Operation Date: 09/07/19 10:30 Proposed Procedures p EGD/COLON(Not Applicable) - Lalo Villarreal MD s Colonoscopy(Not Applicable) - Lalo Villarreal MD Was Beta Paul taken within 24 hours: N/A Last intake: Intake Last Liquid Date 09/06/19 Last Liquid Time 19:30 Last Solid Date 09/05/19 Social: Social History: Tobacco and No alcohol Packs per day: 0.5 pk/day Exam: Pre-Anes Outpt Exam: alert, oriented x 3, clear to auscultation bilaterally and regular rate & rhythm Airway: Submandibular: WNL Cervical ROM: WNL MP: 2 Dentition: Full History/ROS: No significant history except as noted and No significant complaints Pulmonary: Pulmonary: None reported CV/HEM: CV/HEM: None reported : : None reported Hepatic: Hepatic: None reported GI: GI: GERD Metabolic: Metabolic: None reported Musc/skel: Musc/skel: None reported Neuropsych: Neuropsych: Anxiety and Seizure Comments: pseudo seizures Anesthetic Plan: ASA status: II Anesthesia: Anesthesia Evaluation and MAC Risk of > 500 ml blood loss (7ml/kg in children): No PFSH Anesthesia PFSH: Family History (System 09/05/19 @ 09:38 by Zainab Jones) Mother No problems noted. Other Cancer Social History (System 09/05/19 @ 09:38 by Zainab Jones) Smoking and tobacco status: current every day smoker cigarettes Packs smoked per day: 0.5 Second hand smoke exposure: Yes Desire information about alcohol rehabilitation?: No Data Anesthesia Cardiac Studies: No Data to Display
[2019-09-07 11:23] VITALS: BP 92/63; PULSE 78; RESP 18; TEMP 36.2; O2SAT 97
[2019-09-07 11:37] VITALS: BP 116/66; PULSE 76; RESP 20; O2SAT 100
--- NOTE | 2019-09-19 09:36 | PM.HPUD ---
H&P update H&P Update: DATE OF SURGERY/PROCEDURE: 09/07/19 DATE H&P PERFORMED: 09/03/19 H&P UPDATE INFORMATION: H&P completed within last 30 days and No changes to prior documentation PLANNED PROCEDURE: Operation Date: 09/07/19 10:30 Proposed Procedures p EGD/COLON(Not Applicable) - Lalo Villarreal MD s Colonoscopy(Not Applicable) - Lalo Villarreal MD Full H&P Perinent History: Medical/Surgical History: Medical History (Updated 09/19/19 @ 00:00 by ) Headache (Inactive) Status epilepticus (Inactive) Family History: Family History (Updated 09/03/19 @ 15:29 by ALLIE Fish) Mother No problems noted. Other Cancer Social History: Social History Smoking and tobacco status: current every day smoker cigarettes Packs smoked per day: 0.5 Second hand smoke exposure: Yes Desire information about alcohol rehabilitation?: No
== END 2019-09-07 12:00 | disposition home or self-care (01) ==
PROVIDERS: PCP Internal Medicine; Visit Provider Internal Medicine
PROC: 0DJ08ZZ Inspection of Upper Intestinal Tract, Via Natural or Artificial Opening Endoscopic (ICD-10-PCS; CPT 43235; principal; 2019-09-07 10:30)
PROC: 0DJD8ZZ Inspection of Lower Intestinal Tract, Via Natural or Artificial Opening Endoscopic (ICD-10-PCS; CPT 45378; 2019-09-07 10:30)
DX: R10.13 Epigastric pain (principal); K92.1 Melena; K21.0 Gastro-esophageal reflux disease with esophagitis; K29.70 Gastritis, unspecified, without bleeding; F17.210 Nicotine dependence, cigarettes, uncomplicated
CPT/HCPCS: 12345; 43239; 45378; 87077; 96365; J7030

== ENCOUNTER 2019-09-11 19:12 | Emergency (ER) | payer MEDICAID, SELFPAY ==
[2019-09-11 19:22] VITALS: BP 122/89; PULSE 110; RESP 16; TEMP 36.7; O2SAT 96; BMI 34.4
--- NOTE | 2019-09-11 19:28 | W.ED.EYEPROB ---
HPI - Eye Problem General: Chief complaint: Eye Problems Stated complaint: Left eye pain Time Seen by Provider: 09/11/19 19:27 History of Present Illness: HPI Narrative: Patient is a 29-year-old male who comes to the ED with left thigh redness and pain. He states it started a couple days ago. He has clear drainage and red eye. The pain is getting worse. Patient states he wears contacts but has not for his contacts since he started getting the eye pain. patient says his vision is blurry. denies fever, Chills, shortness of breath, chest pain, nausea, vomiting, diarrhea, abdominal pain, dysuria, hematuria, Blood in the stool or constipation. Review of Systems General: Reports: 10 or more systems reviewed and unremarkable except in HPI and below PFSH ED PFSH: Statuses (acute, chronic, etc) shown below reflect problem list status as previously entered and may not be historically accurate Medical History Headache (Inactive) Status epilepticus (Inactive) Family History Mother No problems noted. Other Cancer Social History Smoking and tobacco status: current every day smoker cigarettes Packs smoked per day: 0.5 Second hand smoke exposure: Yes Desire information about alcohol rehabilitation?: No Physical Exam Const: COMMON NORMALS: oriented x3 HENMT: COMMON NORMALS: normocephalic HEAD & SCALP: normocephalic MOUTH: oral and palatal mucosa normal THROAT: posterior oropharynx normal and uvula midline Eye: COMMON NORMALS: PERRL and EOMs intact bilaterally CONJUNCTIVA: Yes conjunctiva abnormal (Patient had some whitish/yellow discharge near tear duct.) positive left PUPIL: Yes PERRL SLIT LAMP EXAM: Yes slit lamp exam performed with fluorescein OTHER: No ulcerations seen upon slit-lamp exam with fluorescein. Neck/C-Spine: COMMON NORMALS: supple GENERAL: Yes normal visual inspection Resp: COMMON NORMALS: normal respiratory effort, no retractions, no use of accessory muscles and clear to auscultation bilaterally AUSCULTATION: clear to auscultation bilaterally Cardio: COMMON NORMALS: regular rate, regular rhythm, S1 normal heart sound, S2 normal heart sound, no gallops, no clicks, no murmurs and peripheral pulses 2+ throughout RATE: regular rate RHYTHM: regular rhythm HEART SOUNDS: S1 normal and S2 normal PERIPHERAL PULSES: pulses 2+ throughout GI: COMMON NORMALS: normal to inspection, nondistended, normoactive bowel sounds, soft to palpation, non-tender and no masses PALPATION: Yes soft : COMMON NORMALS: Yes no CVA tenderness BLADDER/KIDNEY EXAM: Yes no CVA tenderness Back/Pelvis: COMMON NORMALS: no CVA tenderness Neuro: COMMON NORMALS: oriented x3 and moves all extremities Course Vital Signs: Vital signs: Vital Signs Temperature 98.1 F 09/11/19 21:23 Pulse Rate 79 09/11/19 21:23 Respiratory Rate 14 09/11/19 21:23 Blood Pressure 111/74 09/11/19 21:23 Pulse Oximetry 96 09/11/19 21:23 Discharge Plan Discharge Patient Disposition: Home, Self-Care Clinical Impression: Acute bacterial conjunctivitis of left eye Condition: Stable Prescriptions: New Polytrim 10,000 unit- 1 mg/mL drops 1 drop ophthalmic (eye) Q3H 10 Days Qty: 10 RF: 0 No Action alprazolam [Xanax] 1 mg tablet 1 mg PO TID PRN (Reason: Agitation) RF: 0 lithium carbonate 300 mg capsule 300 mg PO BID RF: 0 diphenhydramine HCl 50 mg capsule 50 mg PO Q6H PRN (Reason: Allergy Symptoms) RF: 0 diltiazem HCl 240 mg tablet extended release 24 hr 240 mg PO QAM RF: 0 epinephrine 0.3 mg/0.3 mL auto-injector 0.3 mg IM ONCE RF: 0 metronidazole [Flagyl] 500 mg tablet 500 mg PO TID MDD 3 10 Days Qty: 30 RF: 0 bismuth subsalicylate [Pepto-Bismol] 262 mg/15 mL suspension 524 mg PO Q30M PRN (Reason: h. plyori) 10 Days Qty: 946 RF: 0 doxycycline hyclate 100 mg tablet 100 mg PO BID MDD 2 10 Days Qty: 20 RF: 0 Prilosec 10 mg susp,delayed release for recon 20 mg PO QDAY 10 Days Qty: 10 RF: 0 echdewpsjw-[id number]-wftb [Fioricet] 50-300-40 mg capsule 1 cap PO Q8H PRN (Reason: pain) Qty: 10 RF: 0 tizanidine 4 mg tablet 4 mg PO DAILY RF: 0 pantoprazole 40 mg tablet,delayed release (DR/EC) 40 mg PO DAILY Qty: 30 RF: 8 Discharge Orders: Discharge Order (Routine); Ordered 09/11/19 Ordered By: Johnny Borjas Referrals: Lalo Villarreal MD [Primary Care Provider] - Discharge Diet: Regular Discharge Activity: Resume usual activity Activity Restrictions/Additional Instructions: Follow-up with eye Dr. in the next 2-5 days for reevaluation. Apply eye drops in affected eye as prescribed. If after 48 hours of treatment the eye does not get any better come back to the ED for reevaluation or go to eye doctor. Take Tylenol or ibuprofen as needed for pain or fevers. Drink plenty of fluids. Do not wear contacts until symptoms improve after treatment. Discharge Date/Time: 09/11/19 21:24 Coding Level of Care Code ED Class C Driver for Win Mirza
[2019-09-11] MEDS: HYDROcodone-acetaminophen 7.5-325 mg Tablet 1 TAB PO (21:10)
[2019-09-11 21:23] VITALS: BP 111/74; PULSE 79; RESP 14; TEMP 36.7; O2SAT 96
== END 2019-09-11 21:24 | disposition home or self-care (01) ==
PROVIDERS: Emergency Provider Physician Assistant; PCP Internal Medicine
DX: H10.32 Unspecified acute conjunctivitis, left eye (principal); F17.210 Nicotine dependence, cigarettes, uncomplicated
CPT/HCPCS: 99281; 99283

== ENCOUNTER 2019-09-17 21:28 | Emergency (ER) | payer MEDICAID, SELFPAY ==
[2019-09-17 21:30] VITALS: BP 166/115; PULSE 125; RESP 22; TEMP 36.9; O2SAT 97; BMI 34.4
[2019-09-17] MEDS: LORazepam 2 mg/mL INJ 1 mL IVP (21:30)
--- NOTE | 2019-09-17 21:30 | ED_ITS ---
Entered by Priscilla Zhong, acting as scribe for Sayra Galloway MD HPI - Seizure General: Chief Complaint: Seizure Stated Complaint: SEIZURE Time Seen by Provider: 09/17/19 21:30 Source: family Mode of arrival: other (brought in on stretcher - was seizing in parking lot) Limitations: altered mental status and physical limitation (seizing) History of Present Illness: HPI Narrative: 29 yo presents to ED with active seizure (began approximately 2124). The patient has been seizing for approximately 5 minutes. The patient was brought to ED by his family in an active seizure, then brought to exam room on a gerney. The family states the patient stated he felt warm prior to the seizure. Patient had another seizure at 2135. complaint: seizure Onset (ago): minute(s) (5) Description of Episode: loss of consciousness and tonic-clonic movement Duration of episode: 5 -: minutes(s) Witnessed: Yes - by Bystander Trauma: No Seizure History: Yes Place: Home Possible Precipitating Event: none Associated symptoms: Reports confusion, weakness and other (headache); Deny chest pain, chills or fever(s) Treatments prior to arrival: none Review of Systems Const: Denies: fever, chills, body aches or change in appetite Eyes: Denies: blurry vision or eye discomfort ENMT: Denies: throat pain or dental pain Card: Denies: chest pain Resp: Denies: shortness of breath GI: Denies: abdominal pain, nausea, vomiting or diarrhea : Denies: painful urination Musc: Denies: neck pain or back pain Skin/Breast: Denies: rash Neuro: Reports: confusion Psych: Denies: depression Rogelio/Lymph: Denies: easy bruising All/Imm: Denies: hives PFSH ED PFSH: Statuses (acute, chronic, etc) shown below reflect problem list status as previously entered and may not be historically accurate Social History Smoking and tobacco status: current every day smoker cigarettes Packs smoked per day: 0.5 Second hand smoke exposure: Yes Desire information about alcohol rehabilitation?: No Physical Exam Const: OTHER: possibly seizing HENMT: COMMON NORMALS: normocephalic and head/scalp atraumatic HEAD & SCALP: normocephalic and atraumatic Eye: COMMON NORMALS: PERRL and EOMs intact bilaterally PUPIL: Yes PERRL Neck/C-Spine: COMMON NORMALS: full ROM and supple Chest: COMMONS NORMALS: inspection of chest normal and palpation of chest normal Resp: COMMON NORMALS: normal respiratory effort, no retractions, no use of accessory muscles and clear to auscultation bilaterally AUSCULTATION: clear to auscultation bilaterally Cardio: COMMON NORMALS: regular rate, regular rhythm and no murmurs RATE: regular rate RHYTHM: regular rhythm GI: COMMON NORMALS: normal to inspection, nondistended, normoactive bowel sounds, soft to palpation, non-tender and no masses PALPATION: Yes soft Extremity: COMMON NORMALS: normal to inspection and full ROM Neuro: COMMON NORMALS: moves all extremities OTHER: seizing Psych: COMMON NORMALS: mental status grossly normal, thought process normal and cooperative THOUGHT PROCESS: normal thought process Skin: COMMON NORMALS: no rashes or lesions noted and no wounds GENERAL SKIN EXAM: no rashes or lesions noted Course Vital Signs: Vital signs: Vital Signs Temperature 98.4 F 09/17/19 21:30 Pulse Rate 92 09/17/19 22:31 Respiratory Rate 20 H 09/17/19 22:31 Blood Pressure 114/67 09/17/19 22:31 Pulse Oximetry 95 09/17/19 22:31 MDM - Seizure MDM Narrative: Medical decision making narrative: Patient presents with a possible seizure. He has a history of pseudoseizures and is awake and alert here currently and requesting discharge. Patient here never quit breathing while he is seizing and would make purposeful movements as well. Patient is back to his baseline and is stable for discharge. Discharge Plan Discharge Patient Disposition: Home, Self-Care Clinical Impression: Generalized seizure Condition: Stable Prescriptions: No Action alprazolam [Xanax] 1 mg tablet 1 mg PO TID PRN (Reason: Agitation) RF: 0 lithium carbonate 300 mg capsule 300 mg PO BID RF: 0 diphenhydramine HCl 50 mg capsule 50 mg PO Q6H PRN (Reason: Allergy Symptoms) RF: 0 diltiazem HCl 240 mg tablet extended release 24 hr 240 mg PO QAM RF: 0 epinephrine 0.3 mg/0.3 mL auto-injector 0.3 mg IM ONCE RF: 0 metronidazole [Flagyl] 500 mg tablet 500 mg PO TID MDD 3 10 Days Qty: 30 RF: 0 bismuth subsalicylate [Pepto-Bismol] 262 mg/15 mL suspension 524 mg PO Q30M PRN (Reason: h. plyori) 10 Days Qty: 946 RF: 0 doxycycline hyclate 100 mg tablet 100 mg PO BID MDD 2 10 Days Qty: 20 RF: 0 Prilosec 10 mg susp,delayed release for recon 20 mg PO QDAY 10 Days Qty: 10 RF: 0 jybaqfzhsz-ohkdoymoncvwx-tnne [Fioricet] 50-300-40 mg capsule 1 cap PO Q8H PRN (Reason: pain) Qty: 10 RF: 0 tizanidine 4 mg tablet 4 mg PO DAILY RF: 0 pantoprazole 40 mg tablet,delayed release (DR/EC) 40 mg PO DAILY Qty: 30 RF: 8 Polytrim 10,000 unit- 1 mg/mL drops 1 drop ophthalmic (eye) Q3H 10 Days Qty: 10 RF: 0 Discharge Orders: Discharge Order (Routine); Ordered 09/17/19 Ordered By: Sayra Galloway Referrals: Lalo Villarreal MD [Primary Care Provider] - 4-7 days Discharge Diet: Advance as tolerated Discharge Activity: Resume usual activity Patient Instructions: Recurrent Seizures Adult (ED) Discharge Date/Time: 09/17/19 22:39 Coding Level of Care Code ED Independent Insurance Adjuster for Chg Yuki The documentation recorded by the Farheen lundberg Valerie R accurately reflects the service I personally performed and the decisions made by Laverne mckeon Korby, MD Sep 17, 2019 21:28
[2019-09-17] MEDS: diphenhydrAMINE 50 mg/mL SDV 1mL IVP (21:55)
[2019-09-17] MEDS: metoclopramide 5 mg/mL SDV 2 mL 10 MG IVP (21:55)
[2019-09-17 22:31] VITALS: BP 114/67; PULSE 92; RESP 20; O2SAT 95
== END 2019-09-17 22:39 | disposition home or self-care (01) ==
PROVIDERS: Emergency Provider Emergency Medicine; PCP Internal Medicine
DX: G40.89 Other seizures (principal); F17.210 Nicotine dependence, cigarettes, uncomplicated
CPT/HCPCS: 96374; 99282; 99283; J1200; J2060; J2765

== ENCOUNTER 2019-09-23 15:08 | Emergency (ER) | payer MEDICAID, SELFPAY ==
[2019-09-23 15:11] VITALS: BP 149/93; PULSE 109; RESP 20; TEMP 36.6; O2SAT 94; BMI 33.8
--- NOTE | 2019-09-23 15:28 | ED_ITS ---
Entered by Shasta Champagne, acting as scribe for Sayra Galloway MD Sep 23, 2019 15:08 HPI - Back Pain/Injury General: Chief Complaint: Back Pain/Injury Stated Complaint: Back hurts Time Seen by Provider: 09/23/19 15:20 Source: patient and family Mode of arrival: ambulatory Limitations: no limitations History of Present Illness: MD elicited complaint: back pain and fall Onset (ago): day(s) (yesterda) Timing: progressively worsening Severity: mild Quality: sharp Location: left lower back Radiation: none Exacerbating factors: movement Relieving factors: none Context: fall Associated symptoms: Reports no associated symptoms; Deny abdominal pain, chills, dysuria, fever(s), nausea or vomiting Review of Systems Const: Denies: fever, chills, body aches or change in appetite Eyes: Denies: blurry vision or eye discomfort ENMT: Denies: throat pain or dental pain Card: Denies: chest pain Resp: Denies: shortness of breath GI: Denies: abdominal pain, nausea, vomiting or diarrhea : Denies: painful urination Musc: Reports: back pain; Denies: joint warmth Skin/Breast: Denies: rash Neuro: Denies: headache Psych: Denies: sleeping more Rogelio/Lymph: Denies: easy bruising All/Imm: Denies: acute wheezing PFSH ED PFSH: Statuses (acute, chronic, etc) shown below reflect problem list status as previously entered and may not be historically accurate Social History (Updated 09/20/19 @ 15:23 by ALLIE Fish) Smoking and tobacco status: current every day smoker cigarettes Packs smoked per day: 0.5 Second hand smoke exposure: Yes Desire information about alcohol rehabilitation?: No History of recent travel: No Physical Exam Const: COMMON NORMALS: no apparent distress, oriented x3 and healthy appearing HENMT: COMMON NORMALS: normocephalic and head/scalp atraumatic HEAD & SCALP: normocephalic and atraumatic Eye: COMMON NORMALS: PERRL and EOMs intact bilaterally PUPIL: Yes PERRL Chest: COMMONS NORMALS: inspection of chest normal and palpation of chest normal Resp: COMMON NORMALS: normal respiratory effort, no retractions, no use of accessory muscles and clear to auscultation bilaterally AUSCULTATION: clear to auscultation bilaterally Cardio: COMMON NORMALS: regular rate, regular rhythm and no murmurs RATE: regular rate RHYTHM: regular rhythm GI: COMMON NORMALS: normal to inspection, nondistended, normoactive bowel sounds, soft to palpation, non-tender and no masses PALPATION: Yes soft Extremity: COMMON NORMALS: normal to inspection and full ROM Neuro: COMMON NORMALS: oriented x3, moves all extremities and no focal motor deficits Psych: COMMON NORMALS: mental status grossly normal, thought process normal and cooperative THOUGHT PROCESS: normal thought process Skin: COMMON NORMALS: no rashes or lesions noted and no wounds GENERAL SKIN EXAM: no rashes or lesions noted Course Vital Signs: Vital signs: Vital Signs Temperature 98.3 F 09/23/19 16:07 Pulse Rate 81 09/23/19 16:07 Respiratory Rate 16 09/23/19 16:07 Blood Pressure 127/80 09/23/19 16:07 Pulse Oximetry 94 09/23/19 16:07 MDM - Back Pain/Injury MDM Narrative: Medical decision making narrative: Patient presents here with back pain after a fall is likely muscular versus contusion. X-ray shows no fracture. Patient is well-appearing here and is stable for discharge. Lab Data: Lab results narrative: no acute findings Discharge Plan Discharge Patient Disposition: Home, Self-Care Clinical Impression: Fall Strain of lumbar region Qualifiers: Encounter type: initial encounter Qualified Code(s): S39.012A - Strain of muscle, fascia and tendon of lower back, initial encounter Condition: Stable Prescriptions: New Robaxin-750 750 mg tablet 750 mg PO Q6H Qty: 30 RF: 0 EC-Naprosyn 500 mg tablet,delayed release (DR/EC) 500 mg PO BID PRN (Reason: pain) Qty: 20 RF: 0 No Action alprazolam [Xanax] 1 mg tablet 1 mg PO TID PRN (Reason: Agitation) RF: 0 lithium carbonate 300 mg capsule 300 mg PO BID RF: 0 diphenhydramine HCl 50 mg capsule 50 mg PO Q6H PRN (Reason: Allergy Symptoms) RF: 0 diltiazem HCl 240 mg tablet extended release 24 hr 240 mg PO QAM RF: 0 epinephrine 0.3 mg/0.3 mL auto-injector 0.3 mg IM ONCE RF: 0 lbhktvujbp-oowjcjzvcuswd-vtfy [Fioricet] 50-300-40 mg capsule 1 cap PO Q8H PRN (Reason: pain) Qty: 10 RF: 0 tizanidine 4 mg tablet 4 mg PO DAILY RF: 0 pantoprazole 40 mg tablet,delayed release (DR/EC) 40 mg PO DAILY Qty: 30 RF: 8 Discharge Orders: Discharge Order (Routine); Ordered 09/23/19 Ordered By: Sayra Galloway Referrals: Lalo Villarreal MD [Primary Care Provider] - 4-7 days Discharge Diet: Advance as tolerated Discharge Activity: Resume usual activity Patient Instructions: Back Pain (ED) Discharge Date/Time: 09/23/19 16:08 Coding Level of Care Code ED Carbonator for Chg Fwd Exam Problem Focused The documentation recorded by the Ihsan lundberg Bridget Annette, accurately reflects the service I personally performed and the decisions made by Laverne mckeon Korby, MD Sep 23, 2019 15:08
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
[2019-09-23] MEDS: naproxen 500 mg Tablet PO (15:35)
--- NOTE | 2019-09-23 15:37 | PC.NURSE ---
Patient reports to ED with complaints of lower back pain following a seizure today. Patient reports that he fell during a seizure earlier today. Patient reports pain at 10/10.
[2019-09-23 16:07] VITALS: BP 127/80; PULSE 81; RESP 16; TEMP 36.8; O2SAT 94
== END 2019-09-23 16:08 | disposition home or self-care (01) ==
PROVIDERS: Emergency Provider Emergency Medicine; PCP Internal Medicine
DX: S39.012A Strain of muscle, fascia and tendon of lower back, initial encounter (principal); W19.XXXA Unspecified fall, initial encounter; F17.210 Nicotine dependence, cigarettes, uncomplicated
CPT/HCPCS: 72100; 99281; 99283

== ENCOUNTER 2019-09-25 17:00 | Emergency (ER) | payer MEDICAID, SELFPAY ==
[2019-09-25] MEDS: LORazepam 2 mg/mL INJ 1 mL (17:10)
[2019-09-25] MEDS: ziprasidone 20 mg/mL SDV (17:11)
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
[2019-09-25 17:55] LABS: Alanine Aminotransferase 61 U/L (0-41); Albumin Level 4.4 g/dL (3.5-5.2); Alkaline Phosphatase 149 IU/L (40-130); Anion Gap 15.8 (5-19); Aspartate Amino Transferase 35 U/L (0-40); Blood Urea Nitrogen 20 mg/dL (6-20); Calcium 9.7 mg/dL (8.5-10.5); Carbon Dioxide 24 mmol/L (22-29); Chloride 104 mmol/L (98-107); Globulin 2.7 g/dL (1.3-4.6); Glomerular Filtration Rate 70.6 mL/min (90-130); Lactate (Lactic Acid level) 1.9 mmol/L (0.5-2.2); Potassium 3.8 mmol/L (3.5-5.1); Sodium 140 mmol/L (136-145); Total Bilirubin 0.2 mg/dL (0.15-1.2); Total Protein 7.1 g/dL (6.6-8.7)
[2019-09-25 18:05] LABS: Basophils # 0.1 10^3/uL (0.0-0.1); Basophils % 0.9 %; Eosinophils # 0.1 10^3/uL (0.0-0.8); Eosinophils % 1.5 %; Hematocrit 42.8 % (42.0-52.0); Hemoglobin 14.5 g/dL (11.7-16.6); Lymphocytes # 2.2 10^3/uL (0.8-4.8); Lymphocytes % 32.2 %; Mean Corpuscular HGB Conc 33.9 g/dL (30.0-36.0); Mean Corpuscular Hemoglobin 30.6 pg (28.0-34.0); Mean Corpuscular Volume 90.3 fL (80-94); Mean Platelet Volume 10.6 fL (7.4-10.4); Monocytes # 0.6 10^3/uL (0.2-0.9); Monocytes % 9.1 %; Neutrophils # 3.7 10^3/uL (1.8-7.7); Nucleated Red Blood Cells % 0 %; Platelet Count 217 10^3/cmm (130-400); Red Blood Count 4.74 10^6/uL (4.1-5.3); Red Cell Distribution Width 12.3 % (12.1-15.1); White Blood Count 6.7 10^3/uL (4.0-10.0)
[2019-09-25 18:22] VITALS: BP 135/86; PULSE 115; RESP 18; O2SAT 97
[2019-09-26 09:03] LABS: Glucose 121 mg/dL (65-115)
== END 2019-09-25 18:23 | disposition home or self-care (01) ==
LOC: ER 18:23
PROVIDERS: Family Medicine; Emergency Provider Emergency Medicine; PCP Internal Medicine
DX: R56.9 Unspecified convulsions (principal); F17.210 Nicotine dependence, cigarettes, uncomplicated
CPT/HCPCS: 36415; 80053; 83605; 85025; 96360; 99281; 99283; J2060; J3486

== ENCOUNTER 2019-09-26 03:09 | Emergency (ER) | payer MEDICAID, SELFPAY ==
--- NOTE | 2019-09-26 03:13 | ED_ITS ---
Entered by Angelique Ritter, acting as scribe for Sayra Galloway MD HPI - Seizure General: Chief Complaint: Seizure Stated Complaint: MULTIPLE COMPLAINTS Time Seen by Provider: 09/26/19 03:11 Source: patient and family Mode of arrival: ambulatory History of Present Illness: HPI Narrative: 29 y/o male presents to the ED with complaint of seizure-like activity. Pt has been seen here several times for the same complaint. Family states he does not have a Neurologist because he is waiting for a referral to see Dr. Rogers. Pt smells of ETOH. complaint: seizure Onset (ago): minute(s) -: second(s) Witnessed: Yes - by Bystander Trauma: No Seizure History: Yes Associated symptoms: Deny chest pain, chills or fever(s) Review of Systems Const: Denies: fever, chills, body aches or change in appetite Eyes: Denies: blurry vision or eye discomfort ENMT: Denies: throat pain or dental pain Card: Denies: chest pain Resp: Denies: shortness of breath GI: Denies: abdominal pain, nausea, vomiting or diarrhea : Denies: painful urination Musc: Denies: neck pain or back pain Skin/Breast: Denies: rash Neuro: Reports: seizure-like activity; Denies: headache Psych: Denies: depression Rogelio/Lymph: Denies: easy bruising All/Imm: Denies: hives PFSH ED PFSH: Statuses (acute, chronic, etc) shown below reflect problem list status as previously entered and may not be historically accurate Social History (Updated 09/20/19 @ 15:23 by ALLIE Fish) Smoking and tobacco status: current every day smoker cigarettes Packs smoked per day: 0.5 Second hand smoke exposure: Yes Desire information about alcohol rehabilitation?: No History of recent travel: No Physical Exam Const: COMMON NORMALS: average body habitus NUTRITIONAL APPEARANCE: overweight HENMT: COMMON NORMALS: normocephalic and head/scalp atraumatic HEAD & SCALP: normocephalic and atraumatic Eye: COMMON NORMALS: PERRL and EOMs intact bilaterally PUPIL: Yes PERRL Neck/C-Spine: COMMON NORMALS: full ROM and supple Chest: COMMONS NORMALS: inspection of chest normal and palpation of chest normal Resp: COMMON NORMALS: normal respiratory effort, no retractions, no use of accessory muscles and clear to auscultation bilaterally AUSCULTATION: clear to auscultation bilaterally Cardio: COMMON NORMALS: regular rhythm and no murmurs RATE: tachycardic RHYTHM: regular rhythm GI: COMMON NORMALS: normal to inspection, nondistended, normoactive bowel sounds, soft to palpation, non-tender and no masses PALPATION: Yes soft Extremity: COMMON NORMALS: normal to inspection and full ROM Neuro: COMMON NORMALS: moves all extremities Skin: COMMON NORMALS: no rashes or lesions noted and no wounds GENERAL SKIN EXAM: no rashes or lesions noted Course Vital Signs: Vital signs: Vital Signs Temperature 97.5 F L 09/26/19 03:18 Pulse Rate 77 09/26/19 04:52 Respiratory Rate 24 H 09/26/19 04:52 Blood Pressure 108/51 09/26/19 04:52 Pulse Oximetry 98 09/26/19 04:52 MDM - Seizure MDM Narrative: Medical decision making narrative: Patient presents here with a possible seizure. He has a history of pseudoseizures. Patient here is been awake and alert and is stable for discharge. He is to follow-up with his primary care doctor in 3 to 5 days. Lab Data: Labs: Lab Results 09/26/19 Range/Units 03:26 [place] 0.2 L (0.6-1.2) mmol/L Discharge Plan Discharge Patient Disposition: Home, Self-Care Clinical Impression: Generalized seizure Condition: Stable Prescriptions: No Action alprazolam [Xanax] 1 mg tablet 1 mg PO TID PRN (Reason: Agitation) RF: 0 lithium carbonate 300 mg capsule 300 mg PO BID RF: 0 diphenhydramine HCl 50 mg capsule 50 mg PO Q6H PRN (Reason: Allergy Symptoms) RF: 0 diltiazem HCl 240 mg tablet extended release 24 hr 240 mg PO QAM RF: 0 epinephrine 0.3 mg/0.3 mL auto-injector 0.3 mg IM ONCE RF: 0 [id number]-khglijbfaqmdr-bycn [Fioricet] 50-300-40 mg capsule 1 cap PO Q8H PRN (Reason: pain) Qty: 10 RF: 0 methocarbamol [Robaxin-750] 750 mg tablet 750 mg PO Q6H Qty: 30 RF: 0 naproxen [EC-Naprosyn] 500 mg tablet,delayed release (DR/EC) 500 mg PO BID PRN (Reason: pain) Qty: 20 RF: 0 tizanidine 4 mg tablet 4 mg PO DAILY RF: 0 pantoprazole 40 mg tablet,delayed release (DR/EC) 40 mg PO DAILY Qty: 30 RF: 8 Discharge Orders: Discharge Order (Routine); Ordered 09/26/19 Ordered By: Sayra Galloway Referrals: Lalo Villarreal MD [Primary Care Provider] - 4-7 days Discharge Diet: Advance as tolerated Discharge Activity: Resume usual activity Patient Instructions: Recurrent Seizures Adult (ED) Discharge Date/Time: 09/26/19 04:52 Coding Level of Care Code ED Retail Presentation Specialist for g Fwd The documentation recorded by the Stone lundberg Ashley, accurately reflects the service I personally performed and the decisions made by Laverne mckeon Korby, MD Sep 26, 2019 03:09
[2019-09-26 03:18] VITALS: BP 126/96; PULSE 79; RESP 28; TEMP 36.4; O2SAT 96; BMI 32.2
[2019-09-26 03:24] VITALS: BP 120/73; PULSE 77; RESP 22; O2SAT 98
[2019-09-26] MEDS: diphenhydrAMINE 50 mg/mL SDV 1mL IM (03:35)
[2019-09-26] MEDS: metoclopramide 5 mg/mL SDV 2 mL 10 MG IM (03:35)
[2019-09-26 04:52] VITALS: BP 108/51; PULSE 77; RESP 24; O2SAT 98
[2019-09-26 05:07] LABS: Lithium 0.2 mmol/L (0.6-1.2)
== END 2019-09-26 04:52 | disposition home or self-care (01) ==
PROVIDERS: Emergency Provider Emergency Medicine; PCP Internal Medicine
DX: G40.409 Other generalized epilepsy and epileptic syndromes, not intractable, without status epilepticus (principal); E66.3 Overweight; F17.210 Nicotine dependence, cigarettes, uncomplicated; Z68.32 Body mass index [BMI] 32.0-32.9, adult
CPT/HCPCS: 36415; 80178; 96372; 99283; J1200; J2765

== ENCOUNTER 2019-09-27 23:30 | Emergency (ER) | payer MEDICAID, SELFPAY ==
[2019-09-27 23:38] VITALS: BP 155/85; PULSE 150; RESP 20; O2SAT 97; BMI 30.7
--- NOTE | 2019-09-27 23:38 | ED_ITS ---
Entered by Mary Clarke, acting as scribe for Sep 27, 2019 23:30 HPI - Seizure General: Chief Complaint: Seizure Stated Complaint: SEIZURE Time Seen by Provider: 09/27/19 23:40 Source: patient Mode of arrival: ambulatory Limitations: no limitations History of Present Illness: HPI Narrative: 29 yo m came to the er pov for a seizure. 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 MD complaint: possible seizure Witnessed: Yes - by Other Trauma: No Seizure History: Yes Place: Home Possible Precipitating Event: none Associated symptoms: Reports no associated symptoms; Deny chest pain, chills or fever(s) Treatments prior to arrival: none Review of Systems General: Reports: other (negative unless marked) Const: Denies: fever, chills, body aches or change in appetite Eyes: Denies: blurry vision or eye discomfort ENMT: Denies: throat pain or dental pain Card: Denies: chest pain Resp: Denies: shortness of breath GI: Denies: abdominal pain, nausea, vomiting or diarrhea : Denies: painful urination Musc: Denies: neck pain or back pain Skin/Breast: Denies: rash Neuro: Denies: headache Psych: Denies: depression Rogelio/Lymph: Denies: easy bruising All/Imm: Denies: hives PFSH ED PFSH: Statuses (acute, chronic, etc) shown below reflect problem list status as previously entered and may not be historically accurate Medical History Headache (Inactive) Status epilepticus (Inactive) Family History Mother No problems noted. Other Cancer Social History Smoking and tobacco status: current every day smoker cigarettes Packs smoked per day: 0.5 Second hand smoke exposure: Yes Desire information about alcohol rehabilitation?: No History of recent travel: No Physical Exam Const: COMMON NORMALS: no apparent distress, oriented x3 and healthy appearing HENMT: COMMON NORMALS: normocephalic and head/scalp atraumatic HEAD & SCALP: normocephalic and atraumatic Eye: COMMON NORMALS: PERRL and EOMs intact bilaterally PUPIL: Yes PERRL Neck/C-Spine: COMMON NORMALS: full ROM and supple Chest: COMMONS NORMALS: inspection of chest normal and palpation of chest normal Resp: COMMON NORMALS: normal respiratory effort, no retractions, no use of accessory muscles and clear to auscultation bilaterally AUSCULTATION: clear to auscultation bilaterally Cardio: COMMON NORMALS: regular rate, regular rhythm and no murmurs RATE: regular rate RHYTHM: regular rhythm GI: COMMON NORMALS: normal to inspection, nondistended, normoactive bowel sounds, soft to palpation, non-tender and no masses PALPATION: Yes soft Extremity: COMMON NORMALS: normal to inspection and full ROM Neuro: COMMON NORMALS: oriented x3, moves all extremities and no focal motor deficits Psych: COMMON NORMALS: mental status grossly normal, thought process normal and cooperative THOUGHT PROCESS: normal thought process Skin: COMMON NORMALS: no rashes or lesions noted and no wounds GENERAL SKIN EXAM: no rashes or lesions noted Course Vital Signs: Vital signs: Vital Signs Pulse Rate 150 H 09/27/19 23:38 Respiratory Rate 28 H 09/28/19 00:22 Blood Pressure 155/85 09/27/19 23:38 Pulse Oximetry 92 09/28/19 00:22 MDM - Seizure MDM Narrative: Medical decision making narrative: Patient presents with a possible seizure. Patient is now well-appearing here and is stable for discharge. Patient has been requesting hydrocodone's and I explained to him that I will treat his headache with Tylenol but not hydrocodone. Patient was also requesting IV Ativan as well. Patient is stable for discharge and is to follow-up with his primary care doctor. Discharge Plan Discharge Patient Disposition: Home, Self-Care Clinical Impression: Seizure Condition: Stable Prescriptions: No Action alprazolam [Xanax] 1 mg tablet 1 mg PO TID PRN (Reason: Agitation) RF: 0 lithium carbonate 300 mg capsule 300 mg PO BID RF: 0 diphenhydramine HCl 50 mg capsule 50 mg PO Q6H PRN (Reason: Allergy Symptoms) RF: 0 diltiazem HCl 240 mg tablet extended release 24 hr 240 mg PO QAM RF: 0 epinephrine 0.3 mg/0.3 mL auto-injector 0.3 mg IM ONCE RF: 0 [id number]-yzuhltwbiurmo-zqnq [Fioricet] 50-300-40 mg capsule 1 cap PO Q8H PRN (Reason: pain) Qty: 10 RF: 0 methocarbamol [Robaxin-750] 750 mg tablet 750 mg PO Q6H Qty: 30 RF: 0 naproxen [EC-Naprosyn] 500 mg tablet,delayed release (DR/EC) 500 mg PO BID PRN (Reason: pain) Qty: 20 RF: 0 tizanidine 4 mg tablet 4 mg PO DAILY RF: 0 pantoprazole 40 mg tablet,delayed release (DR/EC) 40 mg PO DAILY Qty: 30 RF: 8 Discharge Orders: Discharge Order (Routine); Ordered 09/28/19 Ordered By: Sayra Galloway Referrals: Lalo Villarreal MD [Primary Care Provider] - Discharge Diet: Advance as tolerated Discharge Activity: Resume usual activity Patient Instructions: Recurrent Seizures Adult (ED) Coding Level of Care Code ED Bobbin Cleaning Machine Operator for Chg Fwd Exam Problem Focused The documentation recorded by the Vince lundberg Stephanie Lyn, accurately reflects the service I personally performed and the decisions made by Laverne mckeon Korby, MD Sep 27, 2019 23:30
[2019-09-28] MEDS: metoclopramide 5 mg/mL SDV 2 mL 10 MG IVP (00:09)
[2019-09-28] MEDS: diphenhydrAMINE 50 mg/mL SDV 1mL IVP (00:09)
[2019-09-28 00:22] VITALS: RESP 28; O2SAT 92
--- NOTE | 2019-09-28 01:14 | PC.NURSE ---
Patient left before DC papers could be signed and given. UC called and spoke to Johnny who stated that he removed the IV himself. He reassured UC on phone that IV was removed by himself.
== END 2019-09-28 01:16 | disposition home or self-care (01) ==
PROVIDERS: Emergency Provider Emergency Medicine; PCP Internal Medicine
DX: R56.9 Unspecified convulsions (principal); R51 Headache; F17.210 Nicotine dependence, cigarettes, uncomplicated
CPT/HCPCS: 96374; 96375; 99283; J1200; J2765

== ENCOUNTER 2019-09-28 04:50 | Emergency (ER) | payer MEDICAID, SELFPAY ==
[2019-09-28 04:57] VITALS: BP 134/107; PULSE 98; RESP 18; TEMP 36.7; O2SAT 95; BMI 32.1
--- NOTE | 2019-09-28 04:57 | ED_ITS ---
Entered by Mary Clarke, acting as scribe for Sayra Galloway MD HPI - Seizure General: Chief Complaint: General Medical Stated Complaint: POSS SEIZURE Time Seen by Provider: 09/28/19 04:51 Source: patient Mode of arrival: ambulatory Limitations: no limitations History of Present Illness: HPI Narrative: 37 yo m came to the er for a seizure. 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: Yes - by Other Trauma: No Seizure History: Yes Place[place] [facility] [place] Precipitating Event: none Associated symptoms: Reports no associated symptoms; Deny chest pain, chills or fever(s) Review of Systems General: Reports: other (negative unless marked) Const: Denies: fever, chills, body aches or change in appetite Eyes: Denies: blurry vision or eye discomfort ENMT: Denies: throat pain or dental pain Card: Denies: chest pain Resp: Denies: shortness of breath GI: Denies: abdominal pain, nausea, vomiting or diarrhea : Denies: painful urination Musc: Denies: neck pain or back pain Skin/Breast: Denies: rash Neuro: Denies: headache Psych: Denies: depression Rogelio/Lymph: Denies: easy bruising All/Imm: Denies: hives PFSH ED PFSH: Statuses (acute, chronic, etc) shown below reflect problem list status as previously entered and may not be historically accurate Social History Smoking and tobacco status: current every day smoker cigarettes Packs smoked per day: 0.5 Second hand smoke exposure: Yes Desire information about alcohol rehabilitation?: No History of recent travel: No Physical Exam Const: COMMON NORMALS: no apparent distress, oriented x3 and healthy appearing HENMT: COMMON NORMALS: normocephalic and head/scalp atraumatic HEAD & SCALP: normocephalic and atraumatic Eye: COMMON NORMALS: PERRL and EOMs intact bilaterally PUPIL: Yes PERRL Neck/C-Spine: COMMON NORMALS: full ROM and supple Chest: COMMONS NORMALS: inspection of chest normal and palpation of chest normal Resp: COMMON NORMALS: normal respiratory effort, no retractions, no use of accessory muscles and clear to auscultation bilaterally AUSCULTATION: clear t o auscultation bilaterally Cardio: COMMON NORMALS: regular rate, regular rhythm and no murmurs RATE: regular rate RHYTHM: regular rhythm GI: COMMON NORMALS: normal to inspection, nondistended, normoactive bowel sounds, soft to palpation, non-tender and no masses PALPATION: Yes soft Extremity: COMMON NORMALS: normal to inspection and full ROM Neuro: COMMON NORMALS: oriented x3, moves all extremities and no focal motor deficits Psych: COMMON NORMALS: mental status grossly normal, thought process normal and cooperative THOUGHT PROCESS: normal thought process Skin: COMMON NORMALS: no rashes or lesions noted and no wounds GENERAL SKIN EXAM: no rashes or lesions noted Course Vital Signs: Vital signs: Vital Signs Temperature 98.0 F 09/28/19 04:57 Pulse Rate 92 09/28/19 05:24 Respiratory Rate 16 09/28/19 05:24 Blood Pressure 122/74 09/28/19 05:24 Pulse Oximetry 94 09/28/19 05:24 MDM - Seizure MDM Narrative: Medical decision making narrative: Patient presents here with a possible seizure. Patient has been seen here multiple times for seizure-like activity that is likely pseudoseizures. He here is well-appearing and is requesting discharge. He is to follow-up with his primary care doctor soon as possible. Discharge Plan Discharge Patient Disposition: Home, Self-Care Clinical Impression: Generalized seizure Condition: Stable Prescriptions: No Action alprazolam [Xanax] 1 mg tablet 1 mg PO TID PRN (Reason: Agitation) RF: 0 lithium carbonate 300 mg capsule 300 mg PO BID RF: 0 diphenhydramine HCl 50 mg capsule 50 mg PO Q6H PRN (Reason: Allergy Symptoms) RF: 0 diltiazem HCl 240 mg tablet extended release 24 hr 240 mg PO QAM RF: 0 epinephrine 0.3 mg/0.3 mL auto-injector 0.3 mg IM ONCE RF: 0 [id number]-kxakcnibecrns-jzva [Fioricet] 50-300-40 mg capsule 1 cap PO Q8H PRN (Reason: pain) Qty: 10 RF: 0 methocarbamol [Robaxin-750] 750 mg tablet 750 mg PO Q6H Qty: 30 RF: 0 naproxen [EC-Naprosyn] 500 mg tablet,delayed release (DR/EC) 500 mg PO BID PRN (Reason: pain) Qty: 20 RF: 0 tizanidine 4 mg tablet 4 mg PO DAILY RF: 0 pantoprazole 40 mg tablet,delayed release (DR/EC) 40 mg PO DAILY Qty: 30 RF: 8 Discharge Orders: Discharge Order (Routine); Ordered 09/28/19 Ordered By: Sayra Galloway Referrals: Lalo Villarreal MD [Primary Care Provider] - 4-7 days Discharge Diet: Advance as tolerated Discharge Activity: Resume usual activity Patient Instructions: Seizures Coding Level of Care Code ED Software Validation Engineer for Chg Fwd Exam Problem Focused The documentation recorded by the Vince lundberg Stephanie Lyn, accurately reflects the service I personally performed and the decisions made by Laverne mckeon Korby, MD Sep 28, 2019 04:50
[2019-09-28] MEDS: diphenhydrAMINE 50 mg/mL SDV 1mL IM (05:19)
[2019-09-28 05:24] VITALS: BP 122/74; PULSE 92; RESP 16; O2SAT 94
[2019-09-28 06:07] VITALS: BP 120/84; PULSE 98; RESP 18; TEMP 36.7; O2SAT 98
== END 2019-09-28 06:08 | disposition home or self-care (01) ==
PROVIDERS: Emergency Provider Emergency Medicine; PCP Internal Medicine
DX: G40.89 Other seizures (principal); F17.210 Nicotine dependence, cigarettes, uncomplicated
CPT/HCPCS: 96372; 99281; 99282; J1200

== ENCOUNTER 2019-09-30 21:31 | Emergency (ER) | payer MEDICAID, SELFPAY ==
--- NOTE | 2019-09-30 21:43 | ED_ITS ---
Entered by Mary Clarke, acting as scribe for Ryan Romo DO HPI - Seizure General: Chief Complaint: Seizure Stated Complaint: POSSIBLE SEIZURE Time Seen by Provider: 09/30/19 21:37 Source: patient Mode of arrival: ambulatory Limitations: no limitations History of Present Illness: HPI Narrative: 29 yo m came to the er with spouse for a seizure. 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 Pt is unable to tell us where he is at, at this time. He continues to seize on presentation to the ED room. 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 - by Other Trauma: No Seizure History: [place] [facility] [place] Associated symptoms: Reports no associated symptoms Review of Systems General: Reports: ROS unobtainable due to mental status PFSH ED PFSH: Statuses (acute, chronic, etc) shown below reflect problem list status as previously entered and may not be historically accurate Social History Smoking and tobacco status: current every day smoker cigarettes Packs smoked per day: 0.5 Second hand smoke exposure: Yes Desire information about alcohol rehabilitation?: No History of recent travel: No Physical Exam Const: EXAM LIMITATIONS: altered mental status ORIENTATION/CONSCIOUSNESS: Yes obtunded OTHER: Patient presents having an active pseudoseizure. He is not answering questions, not responding. He breathes deep, almost with agonal respirations. But, when hand is squeezed, he squeezes back. He opens his eyes and makes eye contact. HENMT: COMMON NORMALS: head/scalp atraumatic, external ears normal and external nose normal HEAD & SCALP: atraumatic; no cyanosis of lips/distal nose FACE & SINUS: no facial edema and no acrocyanosis present NOSE: external nose normal EXTERNAL EAR: Yes external ears normal MOUTH: oral and palatal mucosa not normal (dry) TEETH & GINGI VA: Yes edentulous Eye: COMMON NORMALS: PERRL, EOMs intact bilaterally, conjunctivae normal and no scleral icterus CONJUNCTIVA: Yes conjunctivae normal PUPIL: Yes PERRL Chest: COMMONS NORMALS: inspection of chest normal CHEST: Yes symmetrical chest wall rise Resp: COMMON NORMALS: clear to auscultation bilaterally EFFORT & INSPECTION: Yes decreased respiratory effort and Yes grunting AUSCULTATION: clear to auscultation bilaterally Cardio: COMMON NORMALS: regular rhythm RATE: tachycardic RHYTHM: regular rhythm HEART SOUNDS: no murmurs GI: INSPECTION: Yes normal to inspection PALPATION: No rigid Extremity: GENERAL: No edema Neuro: SENSORIUM/ORIENTATION: Yes obtunded GAIT: Yes unable to assess gait MOTOR EXAM: muscle tone abnormal (Diffuse rigidity) Course Vital Signs: Vital signs: Vital Signs Temperature 98.1 F 09/30/19 21:48 Pulse Rate 104 H 09/30/19 21:48 Respiratory Rate 18 09/30/19 21:48 Blood Pressure 154/84 09/30/19 21:48 Pulse Oximetry 93 09/30/19 21:48 MDM - Seizure MDM Narrative: Medical decision making narrative: 29-year-old male well-known to the ER. He presents often with pseudoseizures. He has been worked up for seizures in the past with EEG studies, etc. and has not been found to have any form of epilepsy. He was wheeled to the room having an active seizure . He was however shaking, having agonal respirations, and not responding to verbal commands. Out of concern for his respirations, and possible airway compromise, quick IV access had to be established. An intraosseous catheter was used to the left proximal tibia. Upon saline flush, the patient immediately, stopped his seizure, set up, and reached toward the IO catheter. He exhibited some agitation, and was given IV Benadryl, Haldol, and Reglan. He did not experience another episode of seizure or pseudoseizure. His mucous membranes seemed quite dry, so a liter bolus was ordered. He adamantly refused this. He demanded the intraosseous catheter be removed. It was explained to him that without this, he would not have IV access established. He continued to demand. The IO catheter was removed. The patient then eloped from the ER before his work-up could be completed. Before his elopement, he was obviously back to baseline, talking, completely awake and alert to time place and situation, as he was making demands in the ER. Apart from an elevated creatinine, and a mildly elevated white blood cell count without left shift, his labs were benign. His EKG was normal. Lab Data: Attestation: I reviewed the patient's lab results. Labs: Lab Results 09/30/19 09/30/1920 Range/Units 21:48 21:48 21:48 WBC 11.4 H (4.0-10.0) 10^3/ uL RBC 4.89 (4.1-5.3) 10^6/u L Hgb 15.2 (11.7-16.6) g/dL Hct 44.5 (42.0-52.0) % MCV 91.0 (80-94) fL MCH 31.1 (28.0-34.0) pg MCHC 34.2 (30.0-36.0) g/dL RDW 12.6 (12.1-15.1) % Plt Count 263 (130-400) 10^3/c mm MPV 10.5 H (7.4-10.4) fL Neut % (Auto) 67.6 % Lymph % (Auto) 22.9 % [place] % (Auto) 7.4 % Eos % (Auto) 1.0 % Baso % (Auto) 0.8 % Neut # (Auto) 7.7 (1.8-7.7) 10^3/u L Lymph # (Auto) 2.6 (0.8-4.8) 10^3/u L [place] # (Auto) 0.9 (0.2-0.9) 10^3/u L Eos # (Auto) 0.1 (0.0-0.8) 10^3/u L Baso # (Auto) 0.1 (0.0-0.1) 10^3/u L Nucleated RBC % (a uto) 0 % Nucleated RBCs # 0.0 /100WBC Sodium 139 (136-145) mmol/L Potassium 3.8 (3.5-5.1) mmol/L Chloride 102 (98-107) mmol/L Carbon Dioxide 24 (22-29) mmol/L Anion Gap 16.8 (5-19) BUN 13 (6-20) mg/dL Creatinine 1.5 H (0.7-1.2) mg/dL GFR Calculation 54.6 L (90-130) mL/min Glucose 99 (65-115) mg/dL Calculated Osmolal ity 284 L (285-295) mOsm/k g Calcium 9.8 (8.5-10.5) mg/dL Creatine Kinase 248 (39-308) U/L [place] 0.1 L (0.6-1.2) mmol/L Ethyl Alcohol < 10 (0-10) mg/dL Discharge Plan Discharge Patient Disposition: Left Against Medical Advice Prescriptions: No Action alprazolam [Xanax] 1 mg tablet 1 mg PO TID PRN (Reason: Agitation) RF: 0 lithium carbonate 300 mg capsule 300 mg PO BID RF: 0 diphenhydramine HCl 50 mg capsule 50 mg PO Q6H PRN (Reason: Allergy Symptoms) RF: 0 diltiazem HCl 240 mg tablet extended release 24 hr 240 mg PO QAM RF: 0 epinephrine 0.3 mg/0.3 mL auto-injector 0.3 mg IM ONCE RF: 0 pneqnyoxaz-jnswajmcxtqda-yeig [Fioricet] 50-300-40 mg capsule 1 cap PO Q8H PRN (Reason: pain) Qty: 10 RF: 0 methocarbamol [Robaxin-750] 750 mg tablet 750 mg PO Q6H Qty: 30 RF: 0 naproxen [EC-Naprosyn] 500 mg tablet,delayed release (DR/EC) 500 mg PO BID PRN (Reason: pain) Qty: 20 RF: 0 tizanidine 4 mg tablet 4 mg PO DAILY RF: 0 pantoprazole 40 mg tablet,delayed release (DR/EC) 40 mg PO DAILY Qty: 30 RF: 8 Referrals: Laol Villarreal MD [Primary Care Provider] - Stand Alone Forms: Against Medical Advice Discharge Date/Time: 09/30/19 22:20 Coding Level of Care Code ED Underlay Stitcher for [facility] The documentation recorded by the Vince lundberg Stephanie Lyn, accurately reflects the service I personally performed and the decisions made by Demetrius mckeon Jeremy John, DO Sep 30, 2019 21:31
--- NOTE | 2019-09-30 21:44 | ECG_ITS ---
Measurements Intervals [place] Rate: 99 P: 39 WI: 144 QRS: 77 QRSD: 92 T: 5 QT: 350 QTc: 449 SINUS RHYTHM Compared to ECG 10/25/2018 03:42:18 No significant changes Electronically Signed On 10-01-2019 20:03:42 FINANCIAL AID MANAGER by Fern Sofia M.D. [email or web address]
[2019-09-30] MEDS: metoclopramide 5 mg/mL SDV 2 mL 10 MG IVP (21:46)
[2019-09-30] MEDS: diphenhydrAMINE 50 mg/mL SDV 1mL 25 MG IVP (21:46)
[2019-09-30] MEDS: haloperidol inj 5 mg/mL INJ 1 mL 2 MG IVP (21:47)
[2019-09-30 21:48] VITALS: BP 154/84; PULSE 104; RESP 18; TEMP 36.7; O2SAT 93; BMI 32.1
[2019-09-30 22:00] LABS: Basophils # 0.1 10^3/uL (0.0-0.1); Basophils % 0.8 %; Eosinophils # 0.1 10^3/uL (0.0-0.8); Hematocrit 44.5 % (42.0-52.0); Hemoglobin 15.2 g/dL (11.7-16.6); Lymphocytes # 2.6 10^3/uL (0.8-4.8); Lymphocytes % 22.9 %; Mean Corpuscular HGB Conc 34.2 g/dL (30.0-36.0); Mean Corpuscular Hemoglobin 31.1 pg (28.0-34.0); Mean Platelet Volume 10.5 fL (7.4-10.4); Monocytes # 0.9 10^3/uL (0.2-0.9); Monocytes % 7.4 %; Neutrophils # 7.7 10^3/uL (1.8-7.7); Neutrophils % 67.6 %; Nucleated Red Blood Cells % 0 %; Platelet Count 263 10^3/cmm (130-400); Red Blood Count 4.89 10^6/uL (4.1-5.3); Red Cell Distribution Width 12.6 % (12.1-15.1); White Blood Count 11.4 10^3/uL (4.0-10.0)
[2019-09-30 22:10] LABS: Anion Gap 16.8 (5-19); Blood Urea Nitrogen 13 mg/dL (6-20); Calcium 9.8 mg/dL (8.5-10.5); Carbon Dioxide 24 mmol/L (22-29); Chloride 102 mmol/L (98-107); Creatine Phosphokinase 248 U/L (39-308); Glomerular Filtration Rate 54.6 mL/min (90-130); Glucose 99 mg/dL (65-115); Osmolality Calculated 284 mOsm/kg (285-295); Potassium 3.8 mmol/L (3.5-5.1); Sodium 139 mmol/L (136-145)
[2019-09-30 22:11] LABS: Alcohol Level < 10 mg/dL (0-10)
--- NOTE | 2019-09-30 22:18 | PC.NURSE ---
Left tibia IO removed, Patient left AMA without signing AMA papers, left with , Dr. Romo and Lorelei tank house operator helper notified
[2019-09-30 22:25] LABS: Lithium 0.1 mmol/L (0.6-1.2)
== END 2019-09-30 22:20 | disposition left against medical advice (07) ==
LOC: ER 21:47
PROVIDERS: Emergency Provider Emergency Medicine; PCP Internal Medicine
DX: R56.9 Unspecified convulsions (principal); Z53.21 Procedure and treatment not carried out due to patient leaving prior to being seen by health care provider; F17.210 Nicotine dependence, cigarettes, uncomplicated
CPT/HCPCS: 80048; 80178; 80307; 82550; 85025; 93005; 96361; 96374; 96375; 99283; J1200; J1630; J2765

== ENCOUNTER 2019-10-04 20:09 | Emergency (ER) | payer MEDICAID, SELFPAY ==
[2019-10-04 20:29] VITALS: BP 141/104; PULSE 107; RESP 18; TEMP 37.2; O2SAT 95; BMI 34.8
--- NOTE | 2019-10-04 21:35 | ED_ITS ---
Entered by Angelique Ritter, acting as scribe for Sayra Galloway MD HPI - Seizure General: Chief Complaint: Seizure Stated Complaint: seizure Time Seen by Provider: 10/04/19 20:53 Source: patient and family Mode of arrival: ambulatory History of Present Illness: HPI Narrative: 29 y/o male presents to the ED for reported seizure. Pt has been seen 10 times this year for the same complaint. Pt does not answer questions. MD complaint: possible seizure Onset (ago): unknown Witnessed: Yes - by Bystander Seizure History: Yes Associated symptoms: Deny chest pain, chills or fever(s) Review of Systems Const: Denies: fever, chills, body aches or change in appetite Eyes: Denies: blurry vision or eye discomfort ENMT: Denies: throat pain or dental pain Card: Denies: chest pain Resp: Denies: shortness of breath GI: Denies: abdominal pain, nausea, vomiting or diarrhea : Denies: painful urination Musc: Denies: neck pain or back pain Skin/Breast: Denies: rash Neuro: Denies: headache Psych: Denies: depression Rogelio/Lymph: Denies: easy bruising All/Imm: Denies: hives PFSH ED PFSH: Social History Smoking and tobacco status: current every day smoker cigarettes Packs smoked per day: 0.5 Second hand smoke exposure: Yes Desire information about alcohol rehabilitation?: No History of recent travel: No Physical Exam Const: GENERAL APPEARANCE: lethargic; not cooperative ORIENTATION/CONSCIOUSNESS: Yes lethargic HENMT: COMMON NORMALS: normocephalic and head/scalp atraumatic HEAD & SCALP: normocephalic and atraumatic Eye: COMMON NORMALS: PERRL and EOMs intact bilaterally PUPIL: Yes PERRL Neck/C-Spine: COMMON NORMALS: full ROM and supple Chest: COMMONS NORMALS: inspection of chest normal and palpation of chest normal Resp: COMMON NORMALS: normal respiratory effort, no retractions, no use of accessory muscles and clear to auscultation bilaterally AUSCULTATION: clear to auscultation bilaterally Cardio: COMMON NORMALS: regular rate, regular rhythm and no murmurs RATE: regular rate RHYTHM: regular rhythm GI: COMMON NORMALS: normal to inspection, nondistended, normoactive bowel sounds, soft to palpation, non-tender and no masses PALPATION: Yes soft Extremity: COMMON NORMALS: normal to inspection and full ROM Neuro: COMMON NORMALS: moves all extremities and no focal motor deficits SENSORIUM/ORIENTATION: Yes lethargic Psych: ATTITUDE: Yes uncooperative ACTIVITY/MOTOR BEHAVIOR: No appropriate eye contact Skin: COMMON NORMALS: no rashes or lesions noted and no wounds GENERAL SKIN EXAM: no rashes or lesions noted Course Vital Signs: Vital signs: Vital Signs Temperature 98.9 F 10/04/19 20:29 Pulse Rate 107 H 10/04/19 20:29 Respiratory Rate 18 10/04/19 20:29 Blood Pressure 141/104 10/04/19 20:29 Pulse Oximetry 95 10/04/19 20:29 MDM - Seizure MDM Narrative: Medical decision making narrative: Patient presents here with possible seizure. Patient has had no seizures while he is here and has been well-appearing. Patient was demanding Ativan and then got upset and left. Discharge Plan Discharge Patient Disposition: Home, Self-Care Clinical Impression: Generalized seizure Condition: Stable Prescriptions: No Action alprazolam [Xanax] 1 mg tablet 1 mg PO TID PRN (Reason: Agitation) RF: 0 lithium carbonate 300 mg capsule 300 mg PO BID RF: 0 diphenhydramine HCl 50 mg capsule 50 mg PO Q6H PRN (Reason: Allergy Symptoms) RF: 0 diltiazem HCl 240 mg tablet extended release 24 hr 240 mg PO QAM RF: 0 epinephrine 0.3 mg/0.3 mL auto-injector 0.3 mg IM ONCE RF: 0 [id number] [Fioricet] 50-300-40 mg capsule 1 cap PO Q8H PRN (Reason: pain) Qty: 10 RF: 0 methocarbamol [Robaxin-750] 750 mg tablet 750 mg PO Q6H Qty: 30 RF: 0 naproxen [EC-Naprosyn] 500 mg tablet,delayed release (DR/EC) 500 mg PO BID PRN (Reason: pain) Qty: 20 RF: 0 tizanidine 4 mg tablet 4 mg PO DAILY RF: 0 pantoprazole 40 mg tablet,delayed release (DR/EC) 40 mg PO DAILY Qty: 30 RF: 8 Discharge Orders: Discharge Order (Routine); Ordered 10/04/19 Ordered By: Sayra Galloway Referrals: Lalo Villarreal MD [Primary Care Provider] - 4-7 days Discharge Diet: Advance as tolerated Discharge Activity: Resume usual activity Patient Instructions: Recurrent Seizures Adult (ED) Discharge Date/Time: 10/04/19 22:38 Coding Level of Care Code ED Litigation Paralegal for Chg Fwd Exam Problem Focused The documentation recorded by the Stone lundberg Ashley, accurately reflects the service I personally performed and the decisions made by Laverne mckeon Korby, MD Oct 04, 2019 20:09
[2019-10-04] MEDS: metoclopramide 5 mg/mL SDV 2 mL 10 MG IM (21:47)
[2019-10-04] MEDS: diphenhydrAMINE 50 mg/mL SDV 1mL IM (21:47)
--- NOTE | 2019-10-04 22:14 | PC.NURSE ---
Patient pressed call light and asked why he can't have Ativan. I told him I don's know and that I would inform his nurse and doctor. His nurse and doctor are made aware.
== END 2019-10-04 22:38 | disposition home or self-care (01) ==
PROVIDERS: Emergency Provider Emergency Medicine; PCP Internal Medicine
DX: F17.210 Nicotine dependence, cigarettes, uncomplicated (principal); G40.409 Other generalized epilepsy and epileptic syndromes, not intractable, without status epilepticus
CPT/HCPCS: 96372; 99282; 99283; J1200; J2765

== ENCOUNTER 2019-10-09 23:43 | Emergency (ER) | payer MEDICAID, SELFPAY ==
[2019-10-09 23:51] VITALS: BP 133/82; PULSE 100; RESP 22; TEMP 37.2; O2SAT 95; BMI 36.2
--- NOTE | 2019-10-09 23:52 | XR_ITS ---
WS: [id number] XR chest 1V portable [id number] REASON FOR EXAM: cough seizures FINDINGS: The cardiac silhouette mediastinal interfaces were normal. The lung odom are well aerated. No pneumonia, pleural effusion, pulmonary edema, no pneumothorax. The hilum and apices were normal. No osseous abnormalities. XR/XR chest 1V portable [id number] IMPRESSION: No active cardiopulmonary changes.
[2019-10-09 23:55] VITALS: BP 128/72; PULSE 82; RESP 16; O2SAT 99
--- NOTE | 2019-10-09 23:57 | ED_ITS ---
Entered by Angelique Ritter, acting as scribe for Sheela Bueno HPI - Seizure General: Chief Complaint: Seizure Stated Complaint: SEIZURE Time Seen by Provider: 10/09/19 23:51 Source: patient and family History of Present Illness: HPI Narrative: 29 y/o male presents to the ED with reported seizures. 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 Upon exam, pt refuses to speak or answer questions; instead he pretends to seize. Pt has been here multiple times for the same complaint. MD complaint: seizure Onset (ago): hour(s) Witnessed: Yes - by Bystander (Boyfriend) Trauma: No Seizure History: Yes Place: Home Associated symptoms: Deny chest pain, chills, confusion, diaphoresis, fever(s), malaise or syncope Treatments prior to arrival: none Review of Systems General: Reports: other (negative unless marked) Const: Denies: fever, chills, body aches, fatigue, malaise or diaphoresis Eyes: Denies: change in vision or blurry vision ENMT: Denies: throat pain, painful swallowing, hoarseness, ear pain, ear discharge, Change in hearing or nasal discharge Card: Denies: chest pain, palpitations, irregular heart rhythm, syncope, pre- syncope, shortness of breath on exertion or shortness of breath when lying down Resp: Denies: shortness of breath, productive cough, non-productive cough, wheezing, coughing up blood or chest congestion GI: Denies: abdominal pain, nausea, vomiting, vomiting blood, coffee grounds in vomit, diarrhea, constipation, cramping, blood in stool or black tarry stool : Denies: flank pain, difficulty urinating, painful urination, urinary frequency, urinary urgency, decreased urine ouput, urinary incontinence or blood in urine Musc: Denies: neck pain, back pain, extremity pain, extremity swelling, joint pain, joint swelling, joint warmth or joint stiffness Skin/Breast: Denies: rash, skin tenderness or yellow skin Neuro: Denies: headache, numbness in extremities, weakness in extremities, changes in sensation, lack of coordination, difficulty walking, dizziness, vertigo or confusion Endo: Denies: excessive thirst, tired all the time, cold intolerance, excessive sweating, flushing or hot flashes Rogelio/Lymph: Denies: easy bruising, easy bleeding, petechiae or enlarged lymph nodes All/Imm: Denies: hives, throat swelling, tongue swelling, facial swelling or acute wheezing PFSH ED PFSH: Social History Smoking and tobacco status: current every day smoker cigarettes Packs smoked per day: 0.5 Second hand smoke exposure: Yes Desire information about alcohol rehabilitation?: No History of recent travel: No Physical Exam Const: COMMON NORMALS: no apparent distress, oriented x3, no limitations, healthy appearing and well nourished EXAM LIMITATIONS: no altered mental status ORIENTATION/CONSCIOUSNESS: Yes other (sleepy but arousable ) HENMT: COMMON NORMALS: normocephalic, head/scalp atraumatic, hearing grossly normal bilaterally, external ears normal, EAC's normal, external nose normal and moist oral mucous membranes HEAD & SCALP: normal to inspection, normocephalic and atraumatic FACE & SINUS: normal facial exam and face symmetric NOSE: external nose normal and nares normal EXTERNAL EAR: Yes external ears normal EXTERNAL AUDITORY CANAL: EAC's normal MOUTH: oral and palatal mucosa normal and tongue normal Eye: COMMON NORMALS: PERRL, EOMs intact bilaterally, conjunctivae normal and no scleral icterus GENERAL EYE: normal appearance of both eyes and normal light reflex CONJUNCTIVA: Yes conjunctivae normal SCLERA: sclerae normal CORNEA: Yes corneas normal PUPIL: Yes PERRL DIRECT OPHTHALMOSCOPY: Yes normal light reflex Neck/C-Spine: COMMON NORMALS: full ROM, no lymphadenopathy, supple, no meningeal signs and no JVD GENERAL: Yes normal visual inspection and Yes trachea midline CERVICAL SPINE: Yes cervical ROM normal Chest: COMMONS NORMALS: inspection of chest normal and palpation of chest normal Resp: COMMON NORMALS: normal respiratory effort, no retractions, no use of accessory muscles and clear to auscultation bilaterally EFFORT & INSPECTION: Yes other (pt refuses to speak) AUSCULTATION: clear to auscultation bilaterally Cardio: COMMON NORMALS: no JVD, regular rate, regular rhythm, S1 normal heart sound, S2 normal heart sound, no gallops, no clicks, no murmurs and no rub JUGULAR VENOUS DISTENTION: no JVD RATE: regular rate RHYTHM: regular rhythm HEART SOUNDS: S1 normal and S2 normal GI: COMMON NORMALS: soft to palpation, non-tender, no hepatosplenomegaly and no masses INSPECTION: Yes normal to inspection PALPATION: Yes soft and Yes no hepatosplenomegaly : COMMON NORMALS: Yes no CVA tenderness BLADDER/KIDNEY EXAM: Yes no CVA tenderness Back/Pelvis: COMMON NORMALS: no CVA tenderness, thoracic and lumbar spine normal to inspection, no thoracic nor lumbar tenderness and thoraco-lumbar ROM normal Extremity: COMMON NORMALS: normal to inspection, full ROM, normal capillary refill, no joint enlargement, no clubbing, cyanosis or edema and no calf tenderness Neuro: COMMON NORMALS: oriented x3, CN's II-XII intact bilaterally, moves all extremities, no focal motor deficits and no sensory deficits noted MENINGEAL SIGNS: Yes no meningeal signs Psych: COMMON NORMALS: thought process normal and affect normal THOUGHT PROCESS: normal thought process Skin: COMMON NORMALS: no rashes or lesions noted, skin turgor normal, no jaundice, no petechiae and no mottling GENERAL SKIN EXAM: no rashes or lesions noted and turgor normal Course Vital Signs: Vital signs: Vital Signs Temperature 98.9 F 10/09/19 23:51 Pulse Rate 82 10/10/19 01:03 Respiratory Rate 16 10/10/19 01:03 Blood Pressure 132/78 10/10/19 01:03 Pulse Oximetry 98 10/10/19 01:03 MDM - Seizure MDM Narrative: Medical decision making narrative: The patient received 2 mg IM Ativan and shortly thereafter woke up without any postictal period and inform nursing he wanted to leave. I told him that he would likely be allowed to sign out AMA as he had a significant other here with him. The risks of leaving without complete evaluation were discussed with him but he still signed out. He would not wait for discharge instructions and left the department walking without any sign of impairment or ataxia. Lab Data: Attestation: I reviewed the patient's lab results. Labs: Lab Results 10/09/19 10/09/19 Range/Units 00:12 00:12 WBC 11.4 H (4.0-10.0) 10^3/ uL RBC 5.15 (4.1-5.3) 10^6/u L Hgb 16.6 (11.7-16.6) g/dL Hct 48.2 (42.0-52.0) % MCV 93.6 (80-94) fL MCH 32.2 (28.0-34.0) pg MCHC 34.4 (30.0-36.0) g/dL RDW 13.0 (12.1-15.1) % Plt Count 250 (130-400) 10^3/c mm MPV 10.3 (7.4-10.4) fL Neut % (Auto) 59.3 % Lymph % (Auto) 29.5 % Desha % (Auto) 9.4 % Eos % (Auto) 0.9 % Baso % (Auto) 0.6 % Neut # (Auto) 6.7 (1.8-7.7) 10^3/u L Lymph # (Auto) 3.4 (0.8-4.8) 10^3/u L Desha # (Auto) 1.1 H (0.2-0.9) 10^3/u L Eos # (Auto) 0.1 (0.0-0.8) 10^3/u L Baso # (Auto) 0.1 (0.0-0.1) 10^3/u L Nucleated RBC % (a uto) 0 % Nucleated RBCs # 0.0 /100WBC Sodium 137 (136-145) mmol/L Potassium 3.9 (3.5-5.1) mmol/L Chloride 100 (98-107) mmol/L Carbon Dioxide 21 L (22-29) mmol/L Anion Gap 19.9 H (5-19) BUN 15 (6-20) mg/dL Creatinine 1.2 (0.7-1.2) mg/dL GFR Calculation 70.6 L (90-130) mL/min Glucose 99 (65-115) mg/dL Calcium 10.2 (8.5-10.5) mg/dL Magnesium 2.3 (1.7-2.3) mg/dL Total Bilirubin 0.3 (0.15-1.2) mg/dL AST 32 (0-40) U/L ALT 61 H (0-41) U/L Alkaline Phosphata se 166 H (40-130) IU/L Creatine Kinase 281 (39-308) U/L Total Protein 7.7 (6.6-8.7) g/dL Albumin 4.9 (3.5-5.2) g/dL Globulin 2.8 (1.3-4.6) g/dL Ethyl Alcohol < 10 (0-10) mg/dL Discharge Plan Discharge Patient Disposition: Left Against Medical Advice Clinical Impression: Generalized seizure Prescriptions: No Action alprazolam [Xanax] 1 mg tablet 1 mg PO TID PRN (Reason: Agitation) RF: 0 lithium carbonate 300 mg capsule 300 mg PO BID RF: 0 diphenhydramine HCl 50 mg capsule 50 mg PO Q6H PRN (Reason: Allergy Symptoms) RF: 0 diltiazem HCl 240 mg tablet extended release 24 hr 240 mg PO QAM RF: 0 epinephrine 0.3 mg/0.3 mL auto-injector 0.3 mg IM ONCE RF: 0 [id number] [Fioricet] 50-300-40 mg capsule 1 cap PO Q8H PRN (Reason: pain) Qty: 10 RF: 0 methocarbamol [Robaxin-750] 750 mg tablet 750 mg PO Q6H Qty: 30 RF: 0 naproxen [EC-Naprosyn] 500 mg tablet,delayed release (DR/EC) 500 mg PO BID PRN (Reason: pain) Qty: 20 RF: 0 tizanidine 4 mg tablet 4 mg PO DAILY RF: 0 pantoprazole 40 mg tablet,delayed release (DR/EC) 40 mg PO DAILY Qty: 30 RF: 8 Referrals: Lalo Villarreal MD [Primary Care Provider] - Interventions: ED Discharge Assessment Last Done: 10/10/19 01:03 Discharge Date/Time: 10/10/19 01:04 Coding Level of Care Code ED Threading Machine Operator for Chg Fwd Exam Comprehensive The documentation recorded by the Stone lundberg Ashley, accurately reflects the service I personally performed and the decisions made by Myles mckeon Eli N Oct 09, 2019 23:43
[2019-10-10] MEDS: LORazepam 2 mg/mL INJ 1 mL IM (00:11)
[2019-10-10 00:36] LABS: Basophils # 0.1 10^3/uL (0.0-0.1); Basophils % 0.6 %; Eosinophils # 0.1 10^3/uL (0.0-0.8); Eosinophils % 0.9 %; Hematocrit 48.2 % (42.0-52.0); Hemoglobin 16.6 g/dL (11.7-16.6); Lymphocytes # 3.4 10^3/uL (0.8-4.8); Lymphocytes % 29.5 %; Mean Corpuscular HGB Conc 34.4 g/dL (30.0-36.0); Mean Corpuscular Hemoglobin 32.2 pg (28.0-34.0); Mean Corpuscular Volume 93.6 fL (80-94); Mean Platelet Volume 10.3 fL (7.4-10.4); Monocytes # 1.1 10^3/uL (0.2-0.9); Monocytes % 9.4 %; Neutrophils # 6.7 10^3/uL (1.8-7.7); Neutrophils % 59.3 %; Nucleated Red Blood Cells % 0 %; Platelet Count 250 10^3/cmm (130-400); Red Blood Count 5.15 10^6/uL (4.1-5.3); White Blood Count 11.4 10^3/uL (4.0-10.0)
[2019-10-10 00:42] LABS: Alanine Aminotransferase 61 U/L (0-41); Albumin Level 4.9 g/dL (3.5-5.2); Alkaline Phosphatase 166 IU/L (40-130); Anion Gap 19.9 (5-19); Aspartate Amino Transferase 32 U/L (0-40); Blood Urea Nitrogen 15 mg/dL (6-20); Calcium 10.2 mg/dL (8.5-10.5); Carbon Dioxide 21 mmol/L (22-29); Chloride 100 mmol/L (98-107); Creatine Phosphokinase 281 U/L (39-308); Globulin 2.8 g/dL (1.3-4.6); Glomerular Filtration Rate 70.6 mL/min (90-130); Glucose 99 mg/dL (65-115); Magnesium 2.3 mg/dL (1.7-2.3); Potassium 3.9 mmol/L (3.5-5.1); Sodium 137 mmol/L (136-145); Total Bilirubin 0.3 mg/dL (0.15-1.2); Total Protein 7.7 g/dL (6.6-8.7)
[2019-10-10 00:59] LABS: Alcohol Level < 10 mg/dL (0-10)
--- NOTE | 2019-10-10 00:59 | PC.NURSE ---
Patient feels better and wishes to sign out Dr. blanca GALVEZ. LEONOR formed signed on chart. Patient left in stable condition with SO via ambulation refusing wheelchair.
[2019-10-10 01:03] VITALS: BP 132/78; PULSE 82; RESP 16; O2SAT 98
== END 2019-10-10 01:04 | disposition left against medical advice (07) ==
LOC: ER 10-10
PROVIDERS: Emergency Provider Emergency Medicine; PCP Internal Medicine
DX: G40.409 Other generalized epilepsy and epileptic syndromes, not intractable, without status epilepticus (principal); F17.210 Nicotine dependence, cigarettes, uncomplicated; Z53.29 Procedure and treatment not carried out because of patient's decision for other reasons
CPT/HCPCS: 36415; 71045; 80053; 80307; 82550; 83735; 85025; 96372; 99282; 99283; J2060

== ENCOUNTER 2019-10-22 21:30 | Emergency (ER) | payer MEDICAID, SELFPAY ==
--- NOTE | 2019-10-22 21:35 | ED_ITS ---
Entered by Angelique Ritter, acting as scribe for HPI - Seizure General: Chief Complaint: Headache Stated Complaint: SEIZURE Time Seen by Provider: 10/22/19 21:34 Source: family and EMS Mode of arrival: EMS History of Present Illness: HPI Narrative: 29 y/o male presents to the ED with complaint of seizure. Pt has been seen multiple times for the same issue. Upon exam, pt is asking for pain medications. MD complaint: seizure Trauma: No Seizure History: Yes Associated symptoms: Deny chest pain, chills or fever(s) Review of Systems Const: Denies: fever, chills, body aches or change in appetite Eyes: Denies: blurry vision or eye discomfort ENMT: Denies: throat pain or dental pain Card: Denies: chest pain Resp: Denies: shortness of breath GI: Denies: abdominal pain, nausea, vomiting or diarrhea : Denies: painful urination Musc: Denies: neck pain or back pain Skin/Breast: Denies: rash Neuro: Denies: headache Rogelio/Lymph: Denies: easy bruising All/Imm: Denies: hives PFSH ED PFSH: Social History Smoking and tobacco status: current every day smoker cigarettes Packs smoked per day: 0.5 Second hand smoke exposure: Yes Desire information about alcohol rehabilitation?: No History of recent travel: No Physical Exam Const: COMMON NORMALS: no apparent distress, oriented x3 and healthy appearing HENMT: COMMON NORMALS: normocephalic and head/scalp atraumatic HEAD & SCALP: normocephalic and atraumatic Eye: COMMON NORMALS: PERRL and EOMs intact bilaterally PUPIL: Yes PERRL Neck/C-Spine: COMMON NORMALS: full ROM and supple Chest: COMMONS NORMALS: inspection of chest normal and palpation of chest normal Resp: COMMON NORMALS: normal respiratory effort, no retractions, no use of accessory muscles and clear to auscultation bilaterally AUSCULTATION: clear to auscultation bilaterally Cardio: COMMON NORMALS: regular rate, regular rhythm and no murmurs RATE: regular rate RHYTHM: regular rhythm GI: COMMON NORMALS: normal to inspection, nondistended, normoactive bowel sounds, soft to palpation, non-tender and no masses PALPATION: Yes soft Extremity: COMMON NORMALS: normal to inspection and full ROM Neuro: COMMON NORMALS: oriented x3, moves all extremities and no focal motor deficits Psych: COMMON NORMALS: mental status grossly normal, thought process normal and cooperative THOUGHT PROCESS: normal thought process Skin: COMMON NORMALS: no rashes or lesions noted and no wounds GENERAL SKIN EXAM: no rashes or lesions noted Course Vital Signs: Vital signs: Vital Signs Temperature 98.2 F 10/22/19 21:38 Pulse Rate 77 10/22/19 22:37 Respiratory Rate 18 10/22/19 22:37 Blood Pressure 118/84 10/22/19 22:37 Pulse Oximetry 96 10/22/19 22:37 MDM - Seizure 2 MDM Narrative: Medical decision making narrative: Scott presents here with headache that is chronic in nature. Patient is well-appearing here and headache is improved after Reglan and Benadryl. Patient has no signs of meningitis or subarachnoid hemorrhage. He is stable for discharge and is return if worsening. Discharge Plan Discharge Patient Disposition: Home, Self-Care Clinical Impression: Headache Qualifiers: Headache type: unspecified Headache chronicity pattern: unspecified pattern Intractability: not intractable Qualified Code(s): R51 - Headache Condition: Stable Prescriptions: No Action alprazolam [Xanax] 1 mg tablet 1 mg PO TID PRN (Reason: Agitation) RF: 0 lithium carbonate 300 mg capsule 300 mg PO BID RF: 0 diphenhydramine HCl 50 mg capsule 50 mg PO Q6H PRN (Reason: Allergy Symptoms) RF: 0 diltiazem HCl 240 mg tablet extended release 24 hr 240 mg PO QAM RF: 0 epinephrine 0.3 mg/0.3 mL auto-injector 0.3 mg IM ONCE RF: 0 [id number]-hcuf [Fioricet] 50-300-40 mg capsule 1 cap PO Q8H PRN (Reason: pain) Qty: 10 RF: 0 methocarbamol [Robaxin-750] 750 mg tablet 750 mg PO Q6H Qty: 30 RF: 0 naproxen [EC-Naprosyn] 500 mg tablet,delayed release (DR/EC) 500 mg PO BID PRN (Reason: pain) Qty: 20 RF: 0 tizanidine 4 mg tablet 4 mg PO DAILY RF: 0 pantoprazole 40 mg tablet,delayed release (DR/EC) 40 mg PO DAILY Qty: 30 RF: 8 Discharge Orders: Discharge Order (Routine); Ordered 10/22/19 Ordered By: Sayra Galloway Referrals: Lalo Villarreal MD [Primary Care Provider] - 4-7 days Discharge Diet: Advance as tolerated Discharge Activity: Resume usual activity Patient Instructions: Acute Headache (ED) Discharge Date/Time: 10/22/19 22:35 Coding Level of Care Code ED Intensive Care Medicine Specialist for Chg Fwd Exam Comprehensive The documentation recorded by the Stone lundberg Ashley, accurately reflects the service I personally performed and the decisions made by Laverne mckeon Korby, MD
[2019-10-22 21:38] VITALS: BP 140/84; PULSE 79; RESP 16; TEMP 36.8; O2SAT 94; BMI 32.1
[2019-10-22] MEDS: diphenhydrAMINE 50 mg/mL SDV 1mL IVP (22:25)
[2019-10-22] MEDS: metoclopramide 5 mg/mL SDV 2 mL 10 MG IVP (22:26)
[2019-10-22 22:37] VITALS: BP 118/84; PULSE 77; RESP 18; O2SAT 96
== END 2019-10-22 22:35 | disposition home or self-care (01) ==
LOC: ER 22:10
PROVIDERS: Emergency Provider Emergency Medicine; PCP Internal Medicine
DX: R51 Headache (principal); F17.210 Nicotine dependence, cigarettes, uncomplicated
CPT/HCPCS: 96374; 96375; 99283; J1200; J2765

== ENCOUNTER 2019-11-04 17:48 | Emergency (ER) | payer MEDICAID, SELFPAY ==
[2019-11-04 17:49] VITALS: BP 117/88; PULSE 119; RESP 16; TEMP 37; O2SAT 95; BMI 33.5
--- NOTE | 2019-11-04 17:54 | ED_ITS ---
Entered by Mary Clarke, acting as scribe for HPI - Psych General: Chief Complaint: Psychiatric Symptoms Stated Complaint: mhe/SI Time Seen by Provider: 11/04/19 17:53 Source: patient Mode of arrival: other (police) Limitations: no limitations History of Present Illness: HPI Narrative: 29 yo m came to the er in police custody for a mental health evaluation. Onset was today. Pt states that he was supposed to get his child and his ex would not not let him see there kids. Pt states that he is SI and that he does have a plan. Pt said that he has a plan to take some pills. After arrival when I seen the patient he denied any plan for suicidal or homicidal ideation. MD complaint: suicidal ideation Onset (ago): day(s) (today) Duration: constant History of same: Yes Relieving factors: none Exacerbating factors: none Associated psychiatric symptoms: depression and suicidal ideation Associated symptoms: Reports suicidal ideation Treatments prior to arrival: none Details of plan: Pt wants to take a bunch of pills Review of Systems General: Reports: other (negative unless marked) Const: Denies: fever, chills, body aches, change in appetite, fatigue or malaise ENMT: Denies: throat pain, ear pain, nasal discharge or nasal congestion Card: Denies: chest pain, edema, shortness of breath on exertion or shortness of breath when lying down Resp: Denies: shortness of breath, productive cough or non-productive cough GI: Denies: abdominal pain, nausea, vomiting, vomiting blood, coffee grounds in vomit, diarrhea, constipation, bloating, blood in stool or black tarry stool : Denies: flank pain, painful urination, urinary frequency or urinary urgency Skin/Breast: Denies: rash or itching Psych: Reports: suicidal ideation PFS ED PFSH: Medical History (Updated 11/04/19 @ 19:38 by Michael Rodriguez) Headache Status epilepticus Social History Smoking and tobacco status: current every day smoker cigarettes Packs smoked per day: 0.5 Second hand smoke exposure: Yes Desire information about alcohol rehabilitation?: No History of recent travel: No Physical Exam Const: COMMON NORMALS: average body habitus, oriented x3 and alert GENERAL APPEARANCE: cooperative, comfortable, well kempt and well developed NUTRITIONAL APPEARANCE: obese ORIENTATION/CONSCIOUSNESS: Yes awake, Yes oriented to person and Yes oriented to place HENMT: COMMON NORMALS: normocephalic, head/scalp atraumatic, EAC's normal, TM's normal bilaterally, external nose normal, moist oral mucous membranes and oropharynx normal HEAD & SCALP: normocephalic and atraumatic NOSE: external nose normal EXTERNAL AUDITORY CANAL: EAC's normal TYMPANIC MEMBRANE: TM's normal bilaterally MOUTH: oral and palatal mucosa normal, lip normal and tongue normal THROAT: posterior oropharynx normal and tonsils normal Eye: COMMON NORMALS: PERRL, EOMs intact bilaterally, conjunctivae normal and no scleral icterus CONJUNCTIVA: Yes conjunctivae normal PUPIL: Yes PERRL Neck/C-Spine: COMMON NORMALS: full ROM, no lymphadenopathy, supple, no meningeal signs and thyroid normal THYROID: thyroid normal and asymmetrical Lymph: LYMPHATIC: no lymphadenopathy noted Resp: COMMON NORMALS: normal respiratory effort, no retractions, no use of accessory muscles and clear to auscultation bilaterally AUSCULTATION: clear to auscultation bilaterally Cardio: COMMON NORMALS: regular rate and regular rhythm RATE: regular rate RHYTHM: regular rhythm HEART SOUNDS: no murmurs GI: COMMON NORMALS: normal to inspection, nondistended, normoactive bowel sounds, soft to palpation and no hepatosplenomegaly PALPATION: Yes soft and Yes no hepatosplenomegaly : COMMON NORMALS: Yes no CVA tenderness BLADDER/KIDNEY EXAM: Yes no CVA tenderness Back/Pelvis: COMMON NORMALS: no CVA tenderness LUMBAR SPINE/LOWER BACK: Yes normal to inspection Extremity: COMMON NORMALS: no clubbing, cyanosis or edema, no calf tenderness and no pedal edema Neuro: COMMON NORMALS: oriented x3 SENSORIUM/ORIENTATION: Yes alert, Yes oriented to person and Yes oriented to place MENINGEAL SIGNS: Yes no meningeal signs Psych: APPEARANCE: Yes well kempt Skin: COMMON NORMALS: no rashes or lesions noted and skin turgor normal GENERAL SKIN EXAM: no rashes or lesions noted and turgor normal MDM - Psych Lab Data: Labs: Lab Results 11/04/19 11/04/19 11/04/19 Range/Units 18:12 18:12 18:18 WBC 21.5 H (4.0-10.0) 10^3/ uL RBC 5.40 H (4.1-5.3) 10^6/u L Hgb 16.8 H (11.7-16.6) g/dL Hct 50.0 (42.0-52.0) % MCV 92.6 (80-94) fL MCH 31.1 (28.0-34.0) pg MCHC 33.6 (30.0-36.0) g/dL RDW 12.6 (12.1-15.1) % Plt Count 265 (130-400) 10^3/c mm MPV 10.7 H (7.4-10.4) fL Neut % (Auto) 80.6 % Lymph % (Auto) 10.9 % Ida % (Auto) 7.1 % Eos % (Auto) 0.3 % Baso % (Auto) 0.5 % Neut # (Auto) 17.4 H (1.8-7.7) 10^3/u L Lymph # (Auto) 2.3 (0.8-4.8) 10^3/u L Ida # (Auto) 1.5 H (0.2-0.9) 10^3/u L Eos # (Auto) 0.1 (0.0-0.8) 10^3/u L Baso # (Auto) 0.1 (0.0-0.1) 10^3/u L Nucleated RBC % (a uto) 0 % Nucleated RBCs # 0.0 /100WBC Sodium 136 (136-145) mmol/L Potassium 3.8 (3.5-5.1) mmol/L Chloride 101 (98-107) mmol/L Carbon Dioxide 24 (22-29) mmol/L Anion Gap 14.8 (5-19) BUN 19 (6-20) mg/dL Creatinine 1.2 (0.7-1.2) mg/dL GFR Calculation 70.6 L (90-130) mL/min Glucose 111 (65-115) mg/dL Calculated Osmolal ity 279 L (285-295) mOsm/k g Calcium 10.0 (8.5-10.5) mg/dL Total Bilirubin 0.5 (0.15-1.2) mg/dL AST 40 (0-40) U/L ALT 56 H (0-41) U/L Alkaline Phosphata se 134 H (40-130) IU/L Total Protein 8.0 (6.6-8.7) g/dL Albumin 5.1 (3.5-5.2) g/dL Globulin 2.9 (1.3-4.6) g/dL Urine Color Yellow (Yellow) Urine Appearance Clear (CLEAR) Urine pH 5 (5-7) Ur Specific Gravit y 1.020 (1.005-1.030) Urine Protein Neg (Negative) Urine Glucose (UA) Norm (Normal) Urine Ketones Negative (Negative) Urine Blood Neg (Negative) Urine Nitrate Negative (Negative) Urine Bilirubin Neg (NEGATIVE) Urine Urobilinogen Norm (Negative) mg/dL Ur Leukocyte Shereen ase Negative (Negative) Salicylates < 0.3 L (3-10) mg/dL Urine Opiates Scre en (Negative) ng/mL Acetaminophen < 5.0 L (10-30) ug/mL Ur Barbiturates Sc reen (Negative) ng/mL Ur Phencyclidine S crn (Negative) ng/mL Ur Amphetamines Sc reen (Negative) ng/mL U Benzodiazepines Scrn (Negative) ng/mL Urine Cocaine Scre en (Negative) ng/mL U Marijuana (THC) Screen (Negative) ng/mL Ethyl Alcohol < 10 (0-10) mg/dL 11/04/19 Range/Units 18:18 WBC (4.0-10.0) 10^3/ uL RBC (4.1-5.3) 10^6/u L Hgb (11.7-16.6) g/dL Hct (42.0-52.0) % MCV (80-94) fL MCH (28.0-34.0) pg MCHC (30.0-36.0) g/dL RDW (12.1-15.1) % Plt Count (130-400) 10^3/c mm MPV (7.4-10.4) fL Neut % (Auto) % Lymph % (Auto) % Ida % (Auto) % Eos % (Auto) % Baso % (Auto) % Neut # (Auto) (1.8-7.7) 10^3/u L Lymph # (Auto) (0.8-4.8) 10^3/u L Ida # (Auto) (0.2-0.9) 10^3/u L Eos # (Auto) (0.0-0.8) 10^3/u L Baso # (Auto) (0.0-0.1) 10^3/u L Nucleated RBC % (a uto) % Nucleated RBCs # /100WBC Sodium (136-145) mmol/L Potassium (3.5-5.1) mmol/L Chloride (98-107) mmol/L Carbon Dioxide (22-29) mmol/L Anion Gap (5-19) BUN (6-20) mg/dL Creatinine (0.7-1.2) mg/dL GFR Calculation (90-130) mL/min Glucose (65-115) mg/dL Calculated Osmolal ity (285-295) mOsm/k g Calcium (8.5-10.5) mg/dL Total Bilirubin (0.15-1.2) mg/dL AST (0-40) U/L ALT (0-41) U/L Alkaline Phosphata se (40-130) IU/L Total Protein (6.6-8.7) g/dL Albumin (3.5-5.2) g/dL Globulin (1.3-4.6) g/dL Urine Color (Yellow) Urine Appearance (CLEAR) Urine pH (5-7) Ur Specific Gravit y (1.005-1.030) Urine Protein (Negative) Urine Glucose (UA) (Normal) Urine Ketones (Negative) Urine Blood (Negative) Urine Nitrate (Negative) Urine Bilirubin (NEGATIVE) Urine Urobilinogen (Negative) mg/dL Ur Leukocyte Shereen ase (Negative) Salicylates (3-10) mg/dL Urine Opiates Scre en Negative (Negative) ng/mL Acetaminophen (10-30) ug/mL Ur Barbiturates Sc reen Negative (Negative) ng/mL Ur Phencyclidine S crn Negative (Negative) ng/mL Ur Amphetamines Sc reen Negative (Negative) ng/mL U Benzodiazepines Scrn Positive H (Negative) ng/mL Urine Cocaine Scre en Negative (Negative) ng/mL U Marijuana (THC) Screen Positive H (Negative) ng/mL Ethyl Alcohol (0-10) mg/dL Discharge Plan Discharge Patient Disposition: Home, Self-Care Clinical Impression: Depression, Anxiety, Substance abuse Condition: Stable Prescriptions: No Action alprazolam [Xanax] 1 mg tablet 1 mg PO TID PRN (Reason: Agitation) RF: 0 lithium carbonate 300 mg capsule 300 mg PO BID RF: 0 diphenhydramine HCl 50 mg capsule 50 mg PO Q6H PRN (Reason: Allergy Symptoms) RF: 0 diltiazem HCl 240 mg tablet extended release 24 hr 240 mg PO QAM RF: 0 epinephrine 0.3 mg/0.3 mL auto-injector 0.3 mg IM ONCE RF: 0 diazepam [Valium] 5 mg tablet 5 mg PO TID PRNRF: 0 [id number]-[id number] [Fioricet] 50-300-40 mg capsule 1 cap PO Q8H PRN (Reason: pain) Qty: 10 RF: 0 methocarbamol [Robaxin-750] 750 mg tablet 750 mg PO Q6H Qty: 30 RF: 0 naproxen [EC-Naprosyn] 500 mg tablet,delayed release (DR/EC) 500 mg PO BID PRN (Reason: pain) Qty: 20 RF: 0 tizanidine 4 mg tablet 4 mg PO DAILY RF: 0 pantoprazole 40 mg tablet,delayed release (DR/EC) 40 mg PO DAILY Qty: 30 RF: 8 Referrals: Lalo Villarreal MD [Primary Care Provider] - Discharge Diet: Usual diet Discharge Activity: Resume usual activity Activity Restrictions/Additional Instructions: Avoid use of drugs. Take previously prescribed medications as prescribed. Follow-up with behavioral health. Discharge Date/Time: 11/04/19 19:20 Coding Level of Care Code ED Topographical Surveyor for [facility] Fwd Exam Comprehensive The documentation recorded by the Vince lundberg Stephanie Lyn, accurately reflects the service I personally performed and the decisions made by Kathleen mckeon Curtis L, DO Nov 04, 2019 17:48
--- NOTE | 2019-11-04 18:16 | PC.NURSE ---
police removed handcuffs. security at bedside
[2019-11-04] MEDS: LORazepam 1 mg Tablet PO (18:23)
[2019-11-04 18:32] LABS: Add Urine Microscopic? NO
[2019-11-04 18:32] LABS: Basophils # 0.1 10^3/uL (0.0-0.1); Basophils % 0.5 %; Eosinophils # 0.1 10^3/uL (0.0-0.8); Eosinophils % 0.3 %; Hemoglobin 16.8 g/dL (11.7-16.6); Lymphocytes # 2.3 10^3/uL (0.8-4.8); Lymphocytes % 10.9 %; Mean Corpuscular HGB Conc 33.6 g/dL (30.0-36.0); Mean Corpuscular Hemoglobin 31.1 pg (28.0-34.0); Mean Corpuscular Volume 92.6 fL (80-94); Mean Platelet Volume 10.7 fL (7.4-10.4); Monocytes # 1.5 10^3/uL (0.2-0.9); Monocytes % 7.1 %; Neutrophils # 17.4 10^3/uL (1.8-7.7); Neutrophils % 80.6 %; Nucleated Red Blood Cells % 0 %; Platelet Count 265 10^3/cmm (130-400); Red Cell Distribution Width 12.6 % (12.1-15.1); White Blood Count 21.5 10^3/uL (4.0-10.0)
[2019-11-04 18:43] LABS: Bilirubin Urine Neg (NEGATIVE); Blood Urine Neg (Negative); Glucose Urine UA Norm (Normal); Ketones Urine Negative (Negative); Leukocyte Esterase Urine Negative (Negative); Nitrate Urine Negative (Negative); Protein Urine Neg (Negative); Urine Appearance Clear (CLEAR); Urine Color Yellow (Yellow); Urobilinogen Urine Norm (Negative); pH Urine 5 (5-7)
[2019-11-04 18:48] LABS: Amphetamines Screen Urine Negative (Negative); Barbiturates Screen Urine Negative (Negative); Benzodiazepines Screen Urine Positive (Negative); Cocaine Screen Urine Negative (Negative); Opiate Screen Urine Negative (Negative); PCP Screen Urine Negative (Negative); THC Screen Urine Positive (Negative)
[2019-11-04 18:50] LABS: Alanine Aminotransferase 56 U/L (0-41); Albumin Level 5.1 g/dL (3.5-5.2); Alkaline Phosphatase 134 IU/L (40-130); Anion Gap 14.8 (5-19); Aspartate Amino Transferase 40 U/L (0-40); Blood Urea Nitrogen 19 mg/dL (6-20); Carbon Dioxide 24 mmol/L (22-29); Chloride 101 mmol/L (98-107); Globulin 2.9 g/dL (1.3-4.6); Glomerular Filtration Rate 70.6 mL/min (90-130); Glucose 111 mg/dL (65-115); Osmolality Calculated 279 mOsm/kg (285-295); Potassium 3.8 mmol/L (3.5-5.1); Sodium 136 mmol/L (136-145); Total Bilirubin 0.5 mg/dL (0.15-1.2)
--- NOTE | 2019-11-04 18:50 | PC.NURSE ---
psych evaluation at bedside (Dr. Rodriguez). Security present. Pt making threats to leave
[2019-11-04 18:54] LABS: Acetaminophen < 5.0 ug/mL (10-30); Alcohol Level < 10 mg/dL (0-10); Salicylate < 0.3 mg/dL (3-10)
--- NOTE | 2019-11-04 19:09 | PM.PSYCN ---
Providers/Reason for Consult Consulting Physican/Specialty*: Michael Rodriguez M.D./Psychiatry Reason for Consult*: Patient made threats to kill himself while in the throes of a custody dispute, police were called, he was taken to [facility] for assessment. There, he rescinded his suicidal threats. Psychiatric evaluation was requested. Requesting Physcian: Nickolas Wang DO Primary Care Provider: Lalo Villarreal MD Psych Consult HPI History of Present Illness Scott Hyatt is a 29 year old male who has been constitution party to an ongoing legal sarkar with his ex- over custody of their children. He apparently got upset and made suicidal gestures, including putting a knife to his abdomen. His partner called the police, who restrained him in handcuffs when he made a lunge at a bottle of prescription medication on which he intended to overdose. He said he wanted to . The police handcuffed him and took him to the emergency room, where I was requested to evaluate him by Dr. Wang. By the time I got there the patient had told the police he had not made it all up and that he had no intention of killing himself. In the time that I spent interviewing him he must have disavowed suicidal ideation, plan or intent some 20 times. He alleges that he had paid his superintendent production some $1500 to represent him in this custody issue. He had a meeting with his superintendent production tomorrow and, if he killed himself, he would have wasted all that money. He said he could not afford that. He again affirmed that he had no suicidal intent, that he was mad and just said stupid stuff which he now regrets. Review of Systems Narrative: Paste thatConst: Denies: fever, chills, Change in weight or night sweats ENMT: Reports: throat pain Card: Denies: chest pain or swelling of feet/ankles Resp: Denies: shortness of breath, productive cough or non-productive cough GI: Reports: difficulty swallowing : Denies: painful urination or urinary urgency Musc: Denies: extremity pain, joint pain or muscle cramps Skin/Breast: Denies: rash, new lesion or changing lesion Neuro: Denies: headache(s), numbness in extremities, weakness in extremities or dizziness Psych: Reports: anxiety, mood swings. Denies: Sleeping less, sleeping more, hallucinations and suicidal/homicidal ideation, plan or intent. Endo: Denies: polyuria, polydipsia, cold intolerance or heat intolerance Rogelio/Lymph: Denies: easy bruising, easy bleeding or enlarged lymph nodes PFSH NPU PFSH: Medical History (Updated 11/04/19 @ 19:38 by Michael Rodriguez) Headache Status epilepticus Social History Smoking and tobacco status: current every day smoker cigarettes Packs smoked per day: 0.5 Second hand smoke exposure: Yes Desire information about alcohol rehabilitation?: No History of recent travel: No Mental Status Exam MSE Comments: 29-year-old male who has a very histrionic presentation with impulsive assertions of suicidal ideation, which he now repeatedly rescinds, renounces, denies and abjures. He has a plan for contending with the stressor which has so irritated him. Mood is irascible but not despondent. Affect is given to hyperbole. Thought processes are integrated and free of any racing, blocking or looseness of association. Speech is dramatic but not dysarthric, aprosodic or pressured. Cognitive functions, although not tested, appear to be intact including orientation, reason and long- and short-term memory. Insight and judgment are slightly impaired but the patient is not bereft thereof. Vitals/I&O/Wt Last Vital Signs Temp 98.6 F 11/04/19 17:49 Pulse 119 H 11/04/19 17:49 Resp 16 11/04/19 17:49 BP 117/88 11/04/19 17:49 Pulse Ox 95 11/04/19 17:49 Weight last 48 hrs Weight 240 lb A&P Assessment and plan (1) Adjustment disorder with mixed disturbance of emotions and conduct in remission: This is a histrionic crisis in which the patient himself says he lost it and wishes he had not. He definitely wants to make that meeting with his superintendent production tomorrow. The patient is calm now, is not in my judgment suicidal, and is competent, per my assessment this evening, to assure his own safety. Status: Resolved Code(s): F43.25 - Adjustment disorder with mixed disturbance of emotions and conduct Involuntary Hold Information 96 Hour Hold: 96 Hour Involuntary Admission: No Attestations NPU Medical Necessity Statement*: This emergency room assessment was certainly necessitated by events recounted in the history and by the patient's known psychiatric proclivities. Coding Level of Care Code Acute Program Lead for [facility] Diagnoses Adjustment disorder with mixed disturbance of emotions and conduct in remission F43.25
[2019-11-04 19:18] VITALS: BP 122/86; PULSE 122; RESP 18; TEMP 36.9; O2SAT 97
== END 2019-11-04 19:20 | disposition home or self-care (01) ==
PROVIDERS: Emergency Provider Family Medicine; PCP Internal Medicine
DX: F41.9 Anxiety disorder, unspecified (principal); F32.9 Major depressive disorder, single episode, unspecified; F43.25 Adjustment disorder with mixed disturbance of emotions and conduct; F14.10 Cocaine abuse, uncomplicated; F17.210 Nicotine dependence, cigarettes, uncomplicated; G40.901 Epilepsy, unspecified, not intractable, with status epilepticus
CPT/HCPCS: 12345; 80053; 80306; 80307; 81003; 85025; 99284; A9270

== ENCOUNTER 2019-11-15 18:35 | Emergency (ER) | payer MEDICAID, SELFPAY ==
[2019-11-15 18:36] VITALS: BMI 35.9
--- NOTE | 2019-11-15 18:36 | ED_ITS ---
Entered by Shasta Champagne, acting as scribe for Sayra Galloway MD HPI - Seizure General: Chief Complaint: Seizure Stated Complaint: seizure Time Seen by Provider: 11/15/19 18:37 Mode of arrival: other (stretcher bed ) Limitations: no limitations History of Present Illness: HPI Narrative: 29 yo male presents with possible seizures. nurse was called to the parking lot for pt being unresponsive and possible seizures. pt has a hx of pseudo seizures. pt refuses to answer any questions at this time. MD complaint: other (shaking episode) Onset (ago): day(s) Witnessed: Yes - by Bystander Possible Precipitating Event: head injury (possible) Associated symptoms: Deny chest pain, chills or fever(s) Treatments prior to arrival: none Review of Systems General: Reports: ROS unobtainable due to medical condition (pt refuses to answer any questions) Const: Denies: fever, chills, body aches or change in appetite Eyes: Denies: blurry vision or eye discomfort ENMT: Denies: throat pain or dental pain Card: Denies: chest pain Resp: Denies: shortness of breath GI: Denies: abdominal pain, nausea, vomiting or diarrhea : Denies: painful urination Musc: Denies: neck pain or back pain Skin/Breast: Denies: rash Neuro: Reports: seizure-like activity; Denies: headache Psych: Denies: depression Rogelio/Lymph: Denies: easy bruising All/Imm: Denies: hives PFSH ED PFSH: Medical History (Updated 11/15/19 @ 19:19 by Sayra Galloway MD) Headache Status epilepticus Social History Smoking and tobacco status: current every day smoker cigarettes Packs smoked per day: 0.5 Second hand smoke exposure: Yes Desire information about alcohol rehabilitation?: No History of recent travel: No Physical Exam Const: COMMON NORMALS: oriented x3 Neck/C-Spine: COMMON NORMALS: full ROM and supple Chest: COMMONS NORMALS: inspection of chest normal and palpation of chest normal Resp: COMMON NORMALS: normal respiratory effort, no retractions, no use of accessory muscles and clear to auscultation bilaterally AUSCULTATION: clear to auscultation bilaterally Cardio: COMMON NORMALS: regular rate, regular rhythm and no murmurs RATE: regular rate RHYTHM: regular rhythm GI: COMMON NORMALS: normal to inspection, nondistended, normoactive bowel sounds, soft to palpation, non-tender and no masses PALPATION: Yes soft Extremity: COMMON NORMALS: normal to inspection and full ROM Neuro: COMMON NORMALS: oriented x3, moves all extremities and no focal motor deficits Psych: COMMON NORMALS: mental status grossly normal, thought process normal and cooperative THOUGHT PROCESS: normal thought process Skin: COMMON NORMALS: no rashes or lesions noted and no wounds GENERAL SKIN EXAM: no rashes or lesions noted Course Vital Signs: Vital signs: Vital Signs Temperature 98.6 F 11/15/19 18:38 Pulse Rate 125 H 11/15/19 18:38 Respiratory Rate 26 H 11/15/19 18:38 Blood Pressure 174/102 11/15/19 18:38 Pulse Oximetry 94 11/15/19 18:43 MDM - Seizure MDM Narrative: Medical decision making narrative: Patient presents here with seizures that is since resolved. His head CT here is normal. Patient is stable for discharge at this time. Imaging Data^: CT Head: Attestation: I personally reviewed and interpreted this imaging study as follows: Radiologist's impression: [place] [address] CT Scan Report Signed Patient: Scott Hyatt Unit #: [id number] : 1990 Age/Sex: 29 / M ADM Date: 11/15/19 Loc: ER Room/Bed: Attending Dr: Ordering Provider/Ordering MD: Sayra Galloway MD Date of Service: 11/15/19 Procedure(s): CT head wo con* [id number] Accession Number(s): [id number] Report Number: [id number] PROCEDURE INFORMATION: Exam: CT Head Without Contrast Exam date and time: 11/15/2019 6:43 PM Age: 29 years old Clinical indication: Injury or trauma; Injury history: Seizures; Initial encounter; Blunt trauma (contusions or hematomas); Consciousness not specified; Additional info: Head injury TECHNIQUE: Imaging protocol: Computed tomography of the head without contrast. Total DLP: 879.75 mGy-cm Radiation optimization: All CT scans at this facility use at least one of these dose optimization techniques: automated exposure control; mA and/or kV adjustment per patient size (includes targeted exams where dose is matched to clinical indication); or iterative reconstruction. COMPARISON: CT head wo con* [id number] 09/04/2019 3:12 PM FINDINGS: Brain: Normal. No hemorrhage. Unremarkable white matter. No mass effect. Ventricles: Normal. No ventriculomegaly. Bones/joints: Unremarkable. No acute fracture. Sinuses: Visualized sinuses are unremarkable. No fluid levels. Mastoid air cells: Visualized mastoid air cells are well aerated. Soft tissues: Unremarkable. CT/CT head wo con* [id number] IMPRESSION: No acute intracranial abnormality. Discharge Plan Discharge Patient Disposition: Home, Self-Care Clinical Impression: Generalized seizure Condition: Stable Prescriptions: No Action alprazolam [Xanax] 1 mg tablet 1 mg PO TID PRN (Reason: Agitation) RF: 0 lithium carbonate 300 mg capsule 300 mg PO BID RF: 0 diphenhydramine HCl 50 mg capsule 50 mg PO Q6H PRN (Reason: Allergy Symptoms) RF: 0 diltiazem HCl 240 mg tablet extended release 24 hr 240 mg PO QAM RF: 0 epinephrine 0.3 mg/0.3 mL auto-injector 0.3 mg IM ONCE RF: 0 diazepam [Valium] 5 mg tablet 5 mg PO TID PRNRF: 0 [id number]-epzaiozrlxhfz-nfxq [Fioricet] 50-300-40 mg capsule 1 cap PO Q8H PRN (Reason: pain) Qty: 10 RF: 0 methocarbamol [Robaxin-750] 750 mg tablet 750 mg PO Q6H Qty: 30 RF: 0 naproxen [EC-Naprosyn] 500 mg tablet,delayed release (DR/EC) 500 mg PO BID PRN (Reason: pain) Qty: 20 RF: 0 tizanidine 4 mg tablet 4 mg PO DAILY RF: 0 pantoprazole 40 mg tablet,delayed release (DR/EC) 40 mg PO DAILY Qty: 30 RF: 8 Discharge Orders: Discharge Order (Routine); Ordered 11/15/19 Ordered By: Sayra Galloway Referrals: Lalo Villarreal MD [Primary Care Provider] - 1-3 days Discharge Diet: Advance as tolerated Discharge Activity: Resume usual activity Patient Instructions: Non-epileptic Seizures (ED) Coding Level of Care Code ED Signal Constructor for [facility] Fwd Exam Comprehensive The documentation recorded by the Ihsan lundberg Bridget Annette, accurately reflects the service I personally performed and the decisions made by , Sayra Galloway MD Nov 15, 2019 18:35
[2019-11-15 18:38] VITALS: BP 174/102; PULSE 125; RESP 26; TEMP 37; O2SAT 95
[2019-11-15 18:43] VITALS: O2SAT 94
[2019-11-15] MEDS: metoclopramide 5 mg/mL SDV 2 mL 10 MG IVP (18:47)
[2019-11-15] MEDS: diphenhydrAMINE 50 mg/mL SDV 1mL IVP (18:47)
[2019-11-15 19:51] VITALS: BP 129/93; PULSE 96; RESP 16; O2SAT 96
== END 2019-11-15 19:53 | disposition home or self-care (01) ==
PROVIDERS: Emergency Provider Emergency Medicine; PCP Internal Medicine
DX: G40.409 Other generalized epilepsy and epileptic syndromes, not intractable, without status epilepticus (principal); F17.210 Nicotine dependence, cigarettes, uncomplicated
CPT/HCPCS: 12345; 70450; 96374; 96375; 99283; J1200; J2765

== ENCOUNTER 2019-11-20 23:25 | Emergency (ER) | payer MEDICAID, SELFPAY ==
[2019-11-20 23:26] VITALS: BP 131/77; PULSE 91; RESP 16; TEMP 37; O2SAT 97; BMI 34.4
--- NOTE | 2019-11-20 23:28 | XR_ITS ---
WS: [id number] PORTABLE CHEST HISTORY: cough COMPARISON: 10/10/2019 Lungs are clear and well expanded. No pleural effusion or pneumothorax. Cardiac size: Normal. Mediastinum/Aorta: Normal mediastinum. No osseous abnormality seen. XR/XR chest 1V portable [id number] IMPRESSION: Unremarkable portable chest.
--- NOTE | 2019-11-20 23:29 | ECG_ITS ---
Measurements Intervals [place] Rate: 89 P: 17 CO: 132 QRS: 43 QRSD: 85 T: 44 QT: 348 QTc: 423 SINUS RHYTHM Compared to ECG 09/30/2019 22:13:18 No significant changes Electronically Signed On 11-21-2019 9:40:02 CDT by Yazmin Banda M.D. [email or web address]
--- NOTE | 2019-11-20 23:32 | ED_ITS ---
HPI - Chest Pain General: Chief Complaint: Chest Pain Stated Complaint: CP Time Seen by Provider: 11/20/19 23:28 History of Present Illness: HPI narrative: Scott Hyatt is a 29-year-old male who comes in with left-sided chest pain after having a seizure. The patient is well known to have seizures. He does not remember any injuries. He denies any pain to his head, neck, extremities, back, abdomen only to the left side of his chest. He states he is specifically concerned that he may have had a heart attack during a seizure. Patient states he has a family history of heart disease. He denies any other history other than of seizures. Associated symptoms: Deny abdominal pain, diaphoresis, dyspnea, fever(s), nausea, palpitations, syncope or vomiting Review of Systems General: Reports: other (negative unless marked) Const: Denies: fever, chills, body aches, fatigue, malaise or diaphoresis Eyes: Denies: change in vision or blurry vision ENMT: Denies: throat pain, painful swallowing, hoarseness, ear pain, ear discharge, Change in hearing or nasal discharge Card: Reports: chest pain; Denies: palpitations, irregular heart rhythm, syncope, pre-syncope, shortness of breath on exertion or shortness of breath when lying down Resp: Denies: shortness of breath, productive cough, non-productive cough, wheezing, coughing up blood or chest congestion GI: Denies: abdominal pain, nausea, vomiting, vomiting blood, coffee grounds in vomit, diarrhea, constipation, cramping, blood in stool or black tarry stool : Denies: flank pain, difficulty urinating, painful urination, urinary frequency, urinary urgency, decreased urine ouput, urinary incontinence or blood in urine Musc: Denies: neck pain, back pain, extremity pain, extremity swelling, joint pain, joint swelling, joint warmth or joint stiffness Skin/Breast: Denies: rash, skin tenderness or yellow skin Neuro: Denies: headache, numbness in extremities, weakness in extremities, changes in sensation, lack of coordination, difficulty walking, dizziness, vertigo or confusion Endo: Denies: excessive thirst, tired all the time, cold intolerance, excessive sweating, flushing or hot flashes [place]elio/Lymph: Denies: easy bruising, easy bleeding, petechiae or enlarged lymph nodes All/Imm: Denies: hives, throat swelling, tongue swelling, facial swelling or acute wheezing PFSH ED PFSH: Medical History Headache Pseudoseizures Family History (Updated 11/20/19 @ 23:33 by Sheela Bueno) Mother No problems noted. Other CAD (coronary artery disease) Cancer Social History Smoking and tobacco status: current every day smoker cigarettes Packs smoked per day: 0.5 Second hand smoke exposure: Yes Desire information about alcohol rehabilitation?: No History of recent travel: No Physical Exam Const: COMMON NORMALS: no apparent distress, oriented x3, no limitations, healthy appearing and well nourished EXAM LIMITATIONS: no altered mental status GENERAL APPEARANCE: cooperative, well kempt and well developed ORIENTATION/CONSCIOUSNESS: Yes awake HENMT: COMMON NORMALS: normocephalic, head/scalp atraumatic, hearing grossly normal bilaterally, external ears normal, EAC's normal, external nose normal and moist oral mucous membranes HEAD & SCALP: normal to inspection, normocephalic and atraumatic FACE & SINUS: normal facial exam and face symmetric NOSE: external nose normal and nares normal EXTERNAL EAR: Yes external ears normal EXTERNAL AUDITORY CANAL: EAC's normal MOUTH: oral and palatal mucosa normal and tongue normal Eye: COMMON NORMALS: PERRL, EOMs intact bilaterally, conjunctivae normal and no scleral icterus GENERAL EYE: normal appearance of both eyes and normal light reflex CONJUNCTIVA: Yes conjunctivae normal SCLERA: sclerae normal CORNEA: Yes corneas normal PUPIL: Yes PERRL DIRECT OPHTHALMOSCOPY: Yes normal light reflex Neck/C-Spine: COMMON NORMALS: full ROM, no lymphadenopathy, supple, no meningeal signs and no JVD GENERAL: Yes normal visual inspection and Yes trachea midline CERVICAL SPINE: Yes cervical ROM normal Chest: COMMONS NORMALS: inspection of chest normal and palpation of chest normal Resp: COMMON NORMALS: normal respiratory effort, no retractions, no use of accessory muscles and clear to auscultation bilaterally EFFORT & INSPECTION: Yes able to speak in complete sentences AUSCULTATION: clear to auscultation bilaterally Cardio: COMMON NORMALS: no JVD, regular rate, regular rhythm, S1 normal heart sound, S2 normal heart sound, no gallops, no clicks, no murmurs and no rub JUGULAR VENOUS DISTENTION: no JVD RATE: regular rate RHYTHM: regular rhythm HEART SOUNDS: S1 normal and S2 normal GI: COMMON NORMALS: soft to palpation, non-tender, no hepatosplenomegaly and no masses INSPECTION: Yes normal to inspection PALPATION: Yes soft and Yes no hepatosplenomegaly : COMMON NORMALS: Yes no CVA tenderness BLADDER/KIDNEY EXAM: Yes no CVA tenderness Back/Pelvis: COMMON NORMALS: no CVA tenderness, thoracic and lumbar spine normal to inspection, no thoracic nor lumbar tenderness and thoraco-lumbar ROM normal Extremity: COMMON NORMALS: normal to inspection, full ROM, normal capillary refill, no joint enlargement, no clubbing, cyanosis or edema and no calf tenderness Neuro: COMMON NORMALS: oriented x3, CN's II-XII intact bilaterally, moves all extremities, no focal motor deficits and no sensory deficits noted MENINGEAL SIGNS: Yes no meningeal signs Psych: COMMON NORMALS: mental status grossly normal, thought process normal, cooperative, affect normal, speech normal and activity/motor behavior normal APPEARANCE: Yes well kempt SPEECH: Yes normal speech THOUGHT PROCESS: normal thought process Skin: COMMON NORMALS: no rashes or lesions noted, skin turgor normal, no jaundice, no petechiae and no mottling GENERAL SKIN EXAM: no rashes or lesions noted and turgor normal Course Vital Signs: Vital signs: Vital Signs Temperature 98.6 F 11/20/19 23:26 Pulse Rate 99 11/20/19 23:55 Respiratory Rate 18 11/20/19 23:55 Blood Pressure 132/88 11/20/19 23:55 Pulse Oximetry 98 11/20/19 23:55 MDM - Chest Pain MDM Narrative: Medical decision making narrative: Patient declines any further observation wants to go home. What was previously thought to be a foreign body ingestion is just his ring taped to his stomach. We will go and discharge him home per his request. I see no evidence of pneumothorax, aortic dissection, acute coronary syndrome or otherwise. Lab Data: Attestation: I reviewed the patient's lab results. Labs: Lab Results 11/20/19 11/20/19 11/20/19 Range/Units 22:25 22:25 22:25 WBC 10.6 H (4.0-10.0) 10^3/ uL RBC 5.13 (4.1-5.3) 10^6/u L Hgb 16.0 (11.7-16.6) g/dL Hct 47.8 (42.0-52.0) % MCV 93.2 (80-94) fL MCH 31.2 (28.0-34.0) pg MCHC 33.5 (30.0-36.0) g/dL RDW 12.4 (12.1-15.1) % Plt Count 237 (130-400) 10^3/c mm MPV 11.6 H (7.4-10.4) fL Neut % (Auto) 64.0 % Lymph % (Auto) 25.4 % [place] % (Auto) 8.3 % Eos % (Auto) 1.1 % Baso % (Auto) 0.8 % Neut # (Auto) 6.8 (1.8-7.7) 10^3/u L Lymph # (Auto) 2.7 (0.8-4.8) 10^3/u L [place] # (Auto) 0.9 (0.2-0.9) 10^3/u L Eos # (Auto) 0.1 (0.0-0.8) 10^3/u L Baso # (Auto) 0.1 (0.0-0.1) 10^3/u L Nucleated RBC % (a uto) 0 % Nucleated RBCs # 0.0 /100WBC Sodium 140 (136-145) mmol/L Potassium 4.0 (3.5-5.1) mmol/L Chloride 103 (98-107) mmol/L Carbon Dioxide 25 (22-29) mmol/L Anion Gap 16.0 (5-19) BUN 15 (6-20) mg/dL Creatinine 1.3 H (0.7-1.2) mg/dL GFR Calculation 64.4 L (90-130) mL/min Glucose 92 (65-115) mg/dL Calculated Osmolal ity 286 (285-295) mOsm/k g Calcium 10.2 (8.5-10.5) mg/dL Total Bilirubin 0.2 (0.15-1.2) mg/dL AST 26 (0-40) U/L ALT 51 H (0-41) U/L Alkaline Phosphata se 150 H (40-130) IU/L Creatine Kinase 118 (39-308) U/L Troponin T Baselin e 9 (0-15) ng/mL Total Protein 6.8 (6.6-8.7) g/dL Albumin 4.7 (3.5-5.2) g/dL Globulin 2.1 (1.3-4.6) g/dL Lipase 38 (13-60) U/L Ethyl Alcohol < 10 (0-10) mg/dL EKG Data^: EKG 1: Attestation: I personally reviewed and interpreted this EKG as follows: EKG interpretation date: 11/20/19 EKG interpretation time: 23:41 Interpretation: Normal sinus rhythm at 89 beats a minute, no acute ST or T wave changes, normal EKG. Discharge Plan Discharge Patient Disposition: Home, Self-Care Clinical Impression: Chest pain Qualifiers: Chest pain type: unspecified Qualified Code(s): R07.9 - Chest pain, unspecified Condition: Stable Prescriptions: No Action alprazolam [Xanax] 1 mg tablet 1 mg PO TID PRN (Reason: Agitation) RF: 0 lithium carbonate 300 mg capsule 300 mg PO BID RF: 0 diphenhydramine HCl 50 mg capsule 50 mg PO Q6H PRN (Reason: Allergy Symptoms) RF: 0 diltiazem HCl 240 mg tablet extended release 24 hr 240 mg PO QAM RF: 0 epinephrine 0.3 mg/0.3 mL auto-injector 0.3 mg IM ONCE RF: 0 diazepam [Valium] 5 mg tablet 5 mg PO TID PRN (Reason: Seizure Activity) RF: 0 vnpohhchjx-[id number]-lucf [Fioricet] 50-300-40 mg capsule 1 cap PO Q8H PRN (Reason: pain) Qty: 10 RF: 0 naproxen [EC-Naprosyn] 500 mg tablet,delayed release (DR/EC) 500 mg PO BID PRN (Reason: pain) Qty: 20 RF: 0 pantoprazole 40 mg tablet,delayed release (DR/EC) 40 mg PO DAILY Qty: 30 RF: 8 Discharge Orders: Discharge Order (Routine); Ordered 11/21/19 Ordered By: Sheela Bueno Referrals: Lalo Villarreal MD [Primary Care Provider] - 1-3 days Discharge Diet: Advance as tolerated Discharge Activity: Resume usual activity Patient Instructions: Chest Pain (ED) Activity Restrictions/Additional Instructions: Please return to the ER immediately for any of the signs or symptoms listed on your discharge instruction sheets, worsening/changing of your symptoms, you are not getting better as quickly as expected, or for ANY other cause or concerns. No driving, no working at heights, no tub baths, no swimming alone or anything else that would put you at risk should you have another seizure. Discharge Date/Time: 11/21/19 00:59 Coding Level of Care Code ED [employer] for iWn Fwd Exam Comprehensive
[2019-11-20 23:37] LABS: Basophils # 0.1 10^3/uL (0.0-0.1); Basophils % 0.8 %; Eosinophils # 0.1 10^3/uL (0.0-0.8); Eosinophils % 1.1 %; Hematocrit 47.8 % (42.0-52.0); Lymphocytes # 2.7 10^3/uL (0.8-4.8); Lymphocytes % 25.4 %; Mean Corpuscular HGB Conc 33.5 g/dL (30.0-36.0); Mean Corpuscular Hemoglobin 31.2 pg (28.0-34.0); Mean Corpuscular Volume 93.2 fL (80-94); Mean Platelet Volume 11.6 fL (7.4-10.4); Monocytes # 0.9 10^3/uL (0.2-0.9); Monocytes % 8.3 %; Neutrophils # 6.8 10^3/uL (1.8-7.7); Nucleated Red Blood Cells % 0 %; Platelet Count 237 10^3/cmm (130-400); Red Blood Count 5.13 10^6/uL (4.1-5.3); Red Cell Distribution Width 12.4 % (12.1-15.1); White Blood Count 10.6 10^3/uL (4.0-10.0)
[2019-11-20 23:55] VITALS: BP 132/88; PULSE 99; RESP 18; O2SAT 98
[2019-11-20 23:55] LABS: Alanine Aminotransferase 51 U/L (0-41); Albumin Level 4.7 g/dL (3.5-5.2); Alkaline Phosphatase 150 IU/L (40-130); Aspartate Amino Transferase 26 U/L (0-40); Blood Urea Nitrogen 15 mg/dL (6-20); Calcium 10.2 mg/dL (8.5-10.5); Carbon Dioxide 25 mmol/L (22-29); Chloride 103 mmol/L (98-107); Creatine Phosphokinase 118 U/L (39-308); Globulin 2.1 g/dL (1.3-4.6); Glomerular Filtration Rate 64.4 mL/min (90-130); Glucose 92 mg/dL (65-115); Lipase 38 U/L (13-60); Osmolality Calculated 286 mOsm/kg (285-295); Sodium 140 mmol/L (136-145); Total Bilirubin 0.2 mg/dL (0.15-1.2); Total Protein 6.8 g/dL (6.6-8.7)
[2019-11-20 23:57] LABS: Troponin(5th) Baseline 9 ng/mL (0-15)
[2019-11-21 00:13] LABS: Alcohol Level < 10 mg/dL (0-10)
[2019-11-21] MEDS: famotidine 20 mg/2 mL INJ 40 MG IVP (00:16)
[2019-11-21] MEDS: diphenhydrAMINE 50 mg/mL SDV 1mL IVP (00:16)
[2019-11-21] MEDS: sodium chloride 0.9% 1,000 ML 999 ML IV (00:17)
== END 2019-11-21 00:59 | disposition home or self-care (01) ==
PROVIDERS: Emergency Provider Emergency Medicine; PCP Internal Medicine
DX: R07.9 Chest pain, unspecified (principal); F17.210 Nicotine dependence, cigarettes, uncomplicated; F44.5 Conversion disorder with seizures or convulsions; F43.25 Adjustment disorder with mixed disturbance of emotions and conduct
CPT/HCPCS: 12345; 36415; 71045; 80053; 80307; 82550; 83690; 84484; 85025; 93005; 96375; 99283; J1200; J2930; J3490; J7030